=== PATIENT | female | born 1950 | race Caucasian/White ===

== ENCOUNTER 2020-10-22 06:14 | Outpatient (REF) | payer MEDICARE, SELFPAY ==
[2020-10-22 07:21] LABS: Alanine Aminotransferase 19 U/L (0-31); Albumin Level 4.7 g/dL (3.5-5.0); Alkaline Phosphatase 78 U/L (39-117); Anion Gap 12 (12-20); Aspartate Amino Transferase 26 U/L (5-31); Bilirubin Total 0.6 mg/dL (0.0-1.0); Blood Urea Nitrogen 12 mg/dL (9-16); Calcium 9.7 mg/dL (8.4-10.2); Carbon Dioxide 27 mmol/L (22-29); Chloride 105 mmol/L (96-108); Cholesterol 217 mg/dL; Estimated Glomerular Filt Rate 56; Glucose Fasting 102 mg/dL (60-99); HDL Cholesterol 77 mg/dL; LDL Cholesterol Calculated 124 mg/dl; Sodium 140 mmol/L (135-145); Total Protein 7.4 g/dL (6.5-8.0); Triglycerides 81 mg/dL
== END 2020-10-22 06:15 | disposition home or self-care (01) ==
LOC: HO.LAB 06:14
PROVIDERS: PCP Internal Medicine; Visit Provider Internal Medicine
DX: I10 Essential (primary) hypertension (principal); E78.5 Hyperlipidemia, unspecified
CPT/HCPCS: 36415; 80053; 80061

== ENCOUNTER 2020-11-27 09:06 | Outpatient (REF) | payer MEDICARE, SELFPAY ==
--- NOTE | ~2020-11-27 | MM_ITS ---
EXAMINATION: MM SCREENING DIGITAL BREAST TOMOSYNTHESIS, BILATERAL CLINICAL INFORMATION: Screening. Asymptomatic. The lifetime risk of breast cancer based on the Tyrer-Cuzick Model is 1.9%. COMPARISON: Mammography: October 10, 2019 and studies dating back to March 14, 2012 TECHNIQUE: Digital breast tomosynthesis is performed in both the craniocaudal and mediolateral oblique views along with computer-aided detection (CAD). Synthesized 2D images are generated from the tomosynthesis. FINDINGS: The breasts are extremely dense, which lowers the sensitivity of mammography (ACR BI-RADS breast composition Category d). There are no significant masses, abnormal calcifications, or other abnormalities. There is stable nodular dense parenchyma as well as a region of architectural distortion which is stable about the deep superior aspect of the left breast. MM/MM tomosynthesis screening BI IMPRESSION: There are no significant changes from prior study. ASSESSMENT: BI-RADS 1: Negative RECOMMENDATION: Routine annual mammography screening. This patient's information was entered into a reminder system with a target due date for their next mammogram.
== END 2020-11-27 09:07 | disposition home or self-care (01) ==
LOC: HO.MAMMO 09:06
PROVIDERS: Visit Provider Internal Medicine
DX: Z12.31 Encounter for screening mammogram for malignant neoplasm of breast (principal)
CPT/HCPCS: 77063; 77067

== ENCOUNTER 2020-12-09 08:11 | Outpatient (REF) | payer MEDICARE, SELFPAY ==
--- NOTE | ~2020-12-09 | MM_ITS ---
EXAMINATION: BONE DENSITOMETRY CLINICAL INDICATION: Essential, primary, hypertension. Screening for osteoporosis. COMPARISON: Baseline BD dated 07/12/2018. TECHNIQUE: Using a [employer] DXA System (software version: 13.1) manufactured by [employer], dual-energy x-ray absorptiometry was performed of the lumbar spine and left hip. The images are of good technical quality. Summary results are attached. FINDINGS: AP SPINE L1-L4: Current: BMD 1.243 g/cm2, Z-score 2.4, T-score 0.5, normal, 1.9% increase from baseline (<5% change is not significant). Baseline: BMD 1.220 g/cm2. LEFT FEMUR, NECK: Current: BMD 0.923 g/cm2, Z-score 1.0, T-score -0.8, normal. Baseline: BMD 0.954 g/cm2. LEFT FEMUR, TOTAL: Current: BMD 0.956 g/cm2, Z-score 1.2, T-score -0.4, normal, 1.4% decrease from baseline (<5% change is not significant). Baseline: BMD 0.970 g/cm2. IDENTIFIED RISK FACTORS: Early menopause, secondary osteoporosis, hysterectomy, bilateral oophorectomy. HISTORY OF FRACTURE: None listed. MEDICATIONS: Vitamin D. MM/XR DEXA axial skeleton IMPRESSION: 1. DIAGNOSIS: Normal bone density based on the lowest T-score value of -0.8 in the femoral neck applying World Health Organization criteria. 2. 10-YEAR FRACTURE RISK PREDICTION, FRAX: Major osteoporotic fracture (clinical spine, forearm, hip or shoulder) 4.6%. Hip fracture 0.5%. 3. Treatment Recommendations: NOF guidelines recommend consideration for treatment in postmenopausal women and men age 50 and older presenting with the following: -A hip or vertebral (clinical or morphometric) fracture. -T-score less than or equal to -2.5 at the femoral neck or spine after appropriate evaluation to exclude secondary causes. -Low bone mass at the hip or spine and a 10-year fracture probability by FRAX of greater than or equal to 3% for hip fracture or greater than or equal to 20% for major osteoporotic fracture based on the [place] adapted WHO algorithm. 4. Other Recommendations: All treatment decisions require clinical judgment and consideration of individual patient factors, including patient preferences, comorbidities, previous drug use, risk factors not captured in the FRAX model (e.g. frailty, falls, vitamin D deficiency, increased bone turnover, interval significant decline in bone density) and possible under or overestimation of fracture risk by FRAX. FUTURE SCAN RECOMMENDATION: People with diagnosed cases of osteoporosis or at high risk for fracture should have regular bone mineral density tests. For patients eligible for Medicare, routine testing is allowed once every 2 years. The testing frequency can be increased to one year for patients who have rapidly progressing disease, those who are receiving or discontinuing medical therapy to restore bone mass, or have additional risk factors.
== END 2020-12-09 08:12 | disposition home or self-care (01) ==
LOC: HO.MAMMO 08:11
PROVIDERS: PCP Internal Medicine; Visit Provider Internal Medicine
DX: Z13.820 Encounter for screening for osteoporosis (principal); Z78.0 Asymptomatic menopausal state
CPT/HCPCS: 77080

== ENCOUNTER 2021-03-11 06:05 | Outpatient (REF) | payer MEDICARE, SELFPAY ==
[2021-03-11 07:49] LABS: Alanine Aminotransferase 22 U/L (0-31); Albumin Level 4.5 g/dL (3.5-5.0); Alkaline Phosphatase 64 U/L (39-117); Anion Gap 10 (12-20); Aspartate Amino Transferase 26 U/L (5-31); Bilirubin Total 0.7 mg/dL (0.0-1.0); Blood Urea Nitrogen 16 mg/dL (9-16); Calcium 9.7 mg/dL (8.4-10.2); Carbon Dioxide 28 mmol/L (22-29); Chloride 106 mmol/L (96-108); Cholesterol 205 mg/dL; Estimated Glomerular Filt Rate > 60; Glucose Fasting 99 mg/dL (60-99); HDL Cholesterol 67 mg/dL; LDL Cholesterol Calculated 123 mg/dl; Potassium 4.1 mmol/L (3.3-5.1); Sodium 140 mmol/L (135-145); Triglycerides 78 mg/dL
== END 2021-03-11 06:06 | disposition home or self-care (01) ==
LOC: HO.LAB 06:05
PROVIDERS: PCP Internal Medicine; Visit Provider Internal Medicine
DX: E78.5 Hyperlipidemia, unspecified (principal); I10 Essential (primary) hypertension
CPT/HCPCS: 36415; 80053; 80061

== ENCOUNTER 2021-11-11 10:33 | Emergency (ER) | payer MEDICARE, BC, SELFPAY ==
[2021-11-11 10:45] VITALS: BP 163/88; PULSE 91; RESP 16; TEMP 36.8; O2SAT 98; BMI 22.8
--- NOTE | 2021-11-11 11:32 | ED_ITS ---
HPI - General Adult General Chief complaint: General Medical Stated complaint: Lump on R side of neck Time Seen by Provider: 11/11/21 12:24 Source: patient Mode of arrival: ambulatory Limitations: no limitations History of Present Illness HPI narrative: 71-year-old female presents to ED for Right cervical lymph node tendernes neck that began on monday . Patient states also right sided throat pain and right mild ear discomfort. Patient states lymphnode siginificantly decreased in size and is improving as per patient. Patient states no fever, chills night sweats, weight loss, coughing, chest pain, shortness of breath, mass on any parts of the body, or family history of Cancer or lymphmoa. Patient denies any drooling, chest pain, shortness of breath, facial swelling, dental pain, or any recent dental work Related Data Previous Rx's Medication Instructions Recorded escitalopram oxalate 5 mg tablet 5 mg PO DAILY 90 days #90 tabs 04/12/21 omeprazole 20 mg capsule,delayed 20 mg PO DAILY 90 days #90 caps 05/31/21 release simvastatin 40 mg tablet 40 mg PO BEDTIME #90 tabs 09/22/21 amlodipine 2.5 mg tablet 2.5 mg PO DAILY #90 tabs 11/04/21 Allergies Allergy/AdvReac Type Severity Reaction Status Date / Time ROBSON Inhibitors Allergy Intermediate Cough Verified 11/11/21 10:48 Sulfa (Sulfonamide Allergy Intermediate GETS Verified 11/11/21 10:48 Antibiotics) REALLY SICK [SULFA (SULFONAMIDE ANTIBIOTICS)] lisinopril [LISINOPRIL] AdvReac Intermediate COUGH Verified 11/11/21 10:48 Review of Systems Review of Systems: Right-sided lump Yes all other systems are reviewed and are negative FOR[facility]LY [facility] Past Medical History Medical History (Updated 11/11/21 @ 12:26 by RAZ Bo) Depression Dyslipidemia Essential hypertension GERD (gastroesophageal reflux disease) Mild recurrent major depression Surgical History History of cholecystectomy History of tonsillectomy History of total hysterectomy Family History Family History Mother Dyslipidemia Father Multiple myeloma Social History Social History Housing: House Alcohol intake: current Alcohol intake frequency: a few times a week Alcohol type: beer and wine Patient Tobacco Use Status: Never used Tobacco Tobacco use type: Cigarette e-Cigarette/Vaping Use: Never Used Second Hand Smoke Exposure: No Advance Directives: No Advance Directives Information Provided: Yes service: No Current occupational status: retired Cognitive needs: No Hearing needs: No Vision needs: No Physical Exam ED Vital Signs: Vital Signs - 24 hr 11/11/21 10:45 Temperature 98.3 F Pulse Rate 91 Respiratory Rate 16 Blood Pressure 163/88 H Pulse Oximetry 98 Oxygen Delivery Method Room Air BMI result Body Mass Index 22.8 Const General: cooperative, healthy appearing, comfortable, no acute distress, well developed, alert, awake and Physically active Orientation/consciousness: oriented to time and patient oriented x3 HENMT Other: Negative for drooling. Negative for tongue swelling. Negative for trismus. Negative for facial swelling. Negative for submandibular swelling. Head: Yes normal to inspection, Yes No palpable skull fracture present, Yes normocephalic, Yes atraumatic and No abrasion Ears: hearing grossly normal bilaterally, external ears normal, TM's normal bilaterally, TM normal on the right, TM normal on the left, EAC's normal, mastoids normal and no periauricular adenopathy Throat: Yes posterior oropharynx normal, Yes tonsils normal and Yes uvula midline Eyes General: appearance normal, both eyes and all related structures Neck Neck: Yes normal visual inspection, Yes full ROM, Yes no lymphadenopathy, Yes no meningeal signs, Yes trachea midline, Yes supple, No anterior neck swelling and Yes lymphadenopathy (right tender small cervical lymphnode) Neck images: 1. Small tender lymph node on palpation. Lymph node is not movable. Negative for erythema. Patient speaking clearly and in full sentences. Negative for any supraclavicular mass Chest Other: Negative for any chest wall mass or lymphadenopathy Chest palpation & inspection: normal inspection of the chest and normal palpation of entire chest wall Resp Effort & Inspection: normal respiratory effort and able to speak in complete sentences Auscultation: clear to auscultation bilaterally Cardio Jugular venous distension: no JVD Heart sounds: S1 normal heart sound present and S2 normal heart sound present GI Other: Negative for any lymph nodes. Inspection: Yes normal to inspection and No abdominal wall ecchymosis Palpation (GI): Soft to palpation, not firm, nontender, no guarding and not rigi d General: No CVA tenderness and Yes no CVA tenderness Back/Spine/Pelvis Back: no CVA tenderness, No CVA tenderness and No back tenderness Skin General skin exam: no rashes or lesions noted and elasticity normal Neuro General: oriented to time, patient oriented x3 and no meningeal signs Cranial nerves: Yes CN's II-XII intact bilaterally Extrem General: Yes normal to inspection and Yes full ROM Psych Appearance: grossly normal, well kempt and not disheveled Course Course Course Narrative: COVID and strep ordered. Patient well-appearing. Reevaluation(s) Reevaluation #1: COVID strep came back negative. Patient is safe for discharge. Diagnosis Lymphadenopathy Patient educated on Hodgkin's and non-Hodgkin's lymphoma. Patient educated on the symptoms and signs informed to follow-up primary care provider immediately. Patient informed to follow with primary care provider. Presently not suspecting any retropharyngeal abscess, Hodgkins or nonhodgkins lymphoma, dental abscess, Brent Angina or peritonsillar abscess. Time: 12:24 Medical Decision Making MDM Narrative Medical decision making narrative: Lymphadenopathy Lab Data Labs: Lab Results 11/11/21 11/11/21 Range/Units 11:48 11:48 COVID-19 (LORA) Negative (Negative) COVID-19 Clin Com See Note S. pyogenes GrpA JONES Negative (Negative) Discharge Plan Discharge Clinical Impression: Lymphadenopathy Patient Disposition: Home, Self-Care Instructions: Lymphadenopathy (ED) Additional Instructions: If strep and COVID test came back negative. Ear exam does not indicate infection. Please follow-up with your primary care provider. Return to the ED immediately for increased size of lymph node, fever, night sweats, weight loss, hard mass/lymph nodes in other parts of the body, weakness, dizziness, chest pain, shortness of breath, or any other concerning symptoms. Over the Motrin and tylelnol can be taken Prescriptions: No Action escitalopram oxalate 5 mg tablet 5 mg PO DAILY 90 Days Qty: 90 3RF omeprazole 20 mg capsule,delayed release(DR/EC) 20 mg PO DAILY 90 Days Qty: 90 2RF simvastatin 40 mg tablet 40 mg PO BEDTIME Qty: 90 1RF amlodipine 2.5 mg tablet 2.5 mg PO DAILY Qty: 90 1RF Interventions: ED Discharge Assessment Last Done: 11/11/21 13:09 Discharge Date/Time: 11/11/21 13:10 Print Language: [place]
[2021-11-11 12:19] LABS: COVID-19 Test Negative (Negative); IDNOW Serial# 16C4AD1C
[2021-11-11 12:22] LABS: IDNOW Serial# 08D9AD1C; Strep A Nucleic Acid Negative (Negative)
== END 2021-11-11 13:10 | disposition home or self-care (01) ==
PROVIDERS: Physician Assistant; Emergency Provider Student in an Organized Health Care Education/Training Program; PCP Internal Medicine
DX: R59.1 Generalized enlarged lymph nodes (principal); Z20.822 Contact with and (suspected) exposure to COVID-19; I10 Essential (primary) hypertension; E78.5 Hyperlipidemia, unspecified; Z79.899 Other long term (current) drug therapy; Z79.02 Long term (current) use of antithrombotics/antiplatelets
CPT/HCPCS: 87635; 87651; 99283

== ENCOUNTER 2021-12-10 08:13 | Outpatient (REF) | payer MEDICARE, BC, SELFPAY ==
--- NOTE | ~2021-12-10 | MM_ITS ---
EXAMINATION: MM SCREENING DIGITAL BREAST TOMOSYNTHESIS, BILATERAL CLINICAL INFORMATION: Screening. Asymptomatic. The lifetime risk of breast cancer based on the Tyrer-Cuzick Model is 2%. COMPARISON: Mammography: 11/27/2020, 10/10/2019, 07/12/2018 TECHNIQUE: Digital breast tomosynthesis is performed in both the craniocaudal and mediolateral oblique views along with computer-aided detection (CAD). Synthesized 2D images are generated from the tomosynthesis. FINDINGS: The breasts are heterogeneously dense, which may obscure small masses (ACR BI-RADS breast composition Category c). Parenchymal pattern is similar to prior studies. There is no mass or architectural abnormality or abnormal calcifications. No developing density. The axilla and skin contours are unremarkable. MM/MM tomosynthesis screening BI IMPRESSION: No mammographic evidence of malignancy. ASSESSMENT: BI-RADS 1: Negative RECOMMENDATION: Routine annual mammography screening. This patient's information was entered into a reminder system with a target due date for their next mammogram.
== END 2021-12-10 08:14 | disposition home or self-care (01) ==
LOC: HO.MAMMO 08:13
PROVIDERS: PCP Internal Medicine; Visit Provider Internal Medicine
DX: Z12.31 Encounter for screening mammogram for malignant neoplasm of breast (principal)
CPT/HCPCS: 77063; 77067

== ENCOUNTER 2022-03-17 06:06 | Outpatient (REF) | payer MEDICARE, BC, SELFPAY ==
[2022-03-17 08:16] LABS: Alanine Aminotransferase 13 U/L (0-31); Albumin Level 4.7 g/dL (3.5-5.0); Alkaline Phosphatase 64 U/L (39-117); Anion Gap 16 (12-20); Aspartate Amino Transferase 25 U/L (5-31); Bilirubin Total 0.6 mg/dL (0.0-1.0); Blood Urea Nitrogen 15 mg/dL (9-16); Calcium 9.7 mg/dL (8.4-10.2); Carbon Dioxide 25 mmol/L (22-29); Chloride 105 mmol/L (96-108); Cholesterol 234 mg/dL; Estimated Glomerular Filt Rate > 60; Glucose Fasting 106 mg/dL (60-99); HDL Cholesterol 75 mg/dL; LDL Cholesterol Calculated 144 mg/dl; Potassium 4.6 mmol/L (3.3-5.1); Sodium 141 mmol/L (135-145); Total Protein 7.3 g/dL (6.5-8.0); Triglycerides 75 mg/dL
== END 2022-03-17 06:07 | disposition home or self-care (01) ==
LOC: HO.LAB 06:06
PROVIDERS: PCP Internal Medicine; Visit Provider Internal Medicine
DX: E78.5 Hyperlipidemia, unspecified (principal)
CPT/HCPCS: 36415; 80053; 80061

== ENCOUNTER 2022-12-16 07:47 | Outpatient (REF) | payer MEDICARE, BC, SELFPAY | END 2022-12-16 07:48 | disposition home or self-care (01) | LOC: HO.MAMMO 07:47 | PROVIDERS: Visit Provider Internal Medicine | DX: Z12.31 Encounter for screening mammogram for malignant neoplasm of breast (principal) | CPT/HCPCS: 77063; 77067 ==

== ENCOUNTER → 2022-12-16 08:15 | Outpatient (BNV) | payer MEDICARE, BC, SELFPAY | PROVIDERS: Visit Provider Radiology Diagnostic Radiology | DX: Z12.31 Encounter for screening mammogram for malignant neoplasm of breast (principal) | CPT/HCPCS: 77063; 77067 ==

== ENCOUNTER 2023-03-16 06:08 | Outpatient (REF) | payer MEDICARE, SELFPAY ==
[2023-03-16 08:19] LABS: Alanine Aminotransferase 12 U/L (0-31); Albumin Level 4.2 g/dL (3.5-5.0); Alkaline Phosphatase 52 U/L (39-117); Anion Gap 13 (12-20); Aspartate Amino Transferase 23 U/L (5-31); Bilirubin Total 0.6 mg/dL (0.0-1.0); Blood Urea Nitrogen 14 mg/dL (9-16); Calcium 9.2 mg/dL (8.4-10.2); Carbon Dioxide 27 mmol/L (22-29); Chloride 105 mmol/L (96-108); Cholesterol 198 mg/dL (<200); Estimated Glomerular Filt Rate > 60; Glucose Fasting 96 mg/dL (60-99); HDL Cholesterol 72 mg/dL (>40); LDL Cholesterol Calculated 115 mg/dL (<100); Potassium 3.6 mmol/L (3.3-5.1); Sodium 141 mmol/L (135-145); Total Protein 6.7 g/dL (6.5-8.0); Triglycerides 58 mg/dL (<150)
== END 2023-03-16 06:09 | disposition home or self-care (01) ==
LOC: HO.LAB 06:08
PROVIDERS: PCP Internal Medicine; Visit Provider Internal Medicine
DX: E78.5 Hyperlipidemia, unspecified (principal)
CPT/HCPCS: 36415; 80053; 80061

== ENCOUNTER 2023-12-22 07:43 | Outpatient (REF) | payer MEDICARE, BC, SELFPAY ==
--- NOTE | ~2023-12-22 | MM_ITS ---
EXAMINATION: MM SCREENING DIGITAL BREAST TOMOSYNTHESIS, BILATERAL CLINICAL INFORMATION: Screening. Asymptomatic. COMPARISON: Mammography: Comparison is made with available priors TECHNIQUE: Digital breast mammography with tomosynthesis is performed in both the craniocaudal and mediolateral oblique views along with computer-aided detection (CAD). FINDINGS: The breasts are heterogeneously dense, which may obscure small masses (ACR BI-RADS breast composition Category c). There are no significant masses, abnormal calcifications, or other abnormalities. MM/MM tomosynthesis screening BI IMPRESSION: No mammographic evidence of malignancy. ASSESSMENT: BI-RADS BI-RADS 1 - Negative RECOMMENDATION: Routine annual mammography screening. 1 year F/U This examination should not preclude the clinical evaluation of a suspicious palpable abnormality. This patient's information was entered into a reminder system with a target due date for their next mammogram. Electronically signed by: Ruth Horta DO 01/02/2024 12:35 PM EDT
== END 2023-12-22 07:44 | disposition home or self-care (01) ==
LOC: HO.MAMMO 07:43
PROVIDERS: PCP Internal Medicine; Visit Provider Internal Medicine
DX: Z12.31 Encounter for screening mammogram for malignant neoplasm of breast (principal)
CPT/HCPCS: 77063; 77067

== ENCOUNTER → 2023-12-22 08:00 | Outpatient (BNV) | payer MEDICARE, BC, SELFPAY | PROVIDERS: PCP Internal Medicine; Visit Provider Internal Medicine | DX: Z12.31 Encounter for screening mammogram for malignant neoplasm of breast (principal) | CPT/HCPCS: 77063; 77067 ==

== ENCOUNTER 2024-04-03 12:21 | Outpatient (AMB) | payer MEDICARE, BC, SELFPAY ==
[2024-04-03 12:30] VITALS: BP 136/70; PULSE 74; O2SAT 98; BMI 19.5
--- NOTE | 2024-04-03 12:30 | A.OFFVIS_ITS ---
Intake Vital Signs 04/03/24 12:30 Height 5 ft 3.5 in Weight 112 lb BMI 19.5 BP 136/70 Blood Pressure Location Lt brachial Position Sitting Pulse 74 Pulse Source Pulse Oximeter Pulse Oximetry (%) 98 Oxygen Delivery Method Room Air Intake Visit Reasons: AWV/ NAI Dr Lange Allergies ROBSON Inhibitors Allergy (Intermediate, Verified 04/03/24 12:31) Cough Sulfa (Sulfonamide Antibiotics) [SULFA (SULFONAMIDE ANTIBIOTICS)] Allergy (Intermediate, Verified 04/03/24 12:31) GETS REALLY SICK lisinopril [LISINOPRIL] Adverse Reaction (Intermediate, Verified 04/03/24 12:31) COUGH Medication List - Last Reconciled 04/03/24 by Jack Garcia MD amlodipine 2.5 mg PO DAILY escitalopram oxalate 5 mg PO DAILY 90 days omeprazole 20 mg PO DAILY 90 days simvastatin 40 mg PO BEDTIME HPI AWV/ NAI Dr Lange HPI Details The patient is a 73-year-old female presenting for an annual wellness visit. She has a history of hypertension, currently managed with 2.5 mg of amlodipine once daily. She also takes simvastatin for hyperlipidemia but was informed during the visit about a potential interaction between amlodipine and simvastatin, and a decision was made to switch her cholesterol management to atorvastatin. The patient reported gastrointestinal issues previously addressed with omeprazole, which she switched to upon consultation, improving her symptoms of heartburn. Her last bone density scan in 2020 was normal, and she expressed interest in a repeat test. The patient has a past medical history significant for colon polyps found in a 2018 colonoscopy, with a follow-up scheduled for June. Additionally, she voiced memory concerns, such as forgetting items like keys but attributes it to aging. No serious cognitive events were reported. Family history is notable for Alzheimer's disease in her biological mother. - Flu vaccination up to date - Tetanus shot up to date - Shingles shot completed - Pneumonia shot received in 2022 - Colonoscopy scheduled for follow-up on June 12 - Last mammogram was in December 2023 - Bone density scan recommended, previou sly normal in 2020 - Blood work requested with fasting for 8 hours prior to test - Advised to increase water intake, kemal cially during the day while limiting before sleep - Encouraged regular physical activity i ncluding walking and mowing lawn - Suggested healthy eating habits and we ight management - Lives with her brother - Drinks alcohol occasionally, primarily on weekends - Smokes marijuana recreationally with jared kelley on weekends - Previously attempted smoking cigarette s, not continued - Engages in physical activities such as walking and lawn mowing - Limited water intake but intends to in crease it - Cardiovascular: Denies chest pain, rep orts good blood pressure control - Gastrointestinal: Denies nausea, vomit ing, or difficulty swallowing; reports previous constipation now resolved with dietary changes - Neurologic: Reports minor memory lapse s, denies dizziness - Respiratory: Denies shortness of breat h - Hearing: No complaints - Labs: Blood work ordered - Procedures: Urinalysis to be conducted - Imaging: Bone density scan scheduled [facility] Medical History (Updated 04/03/24 @ 12:47 by Jack Garcia MD) Mild recurrent major depression Depression Dyslipidemia GERD (gastroesophageal reflux disease) Essential hypertension Surgical History (Updated 04/03/24 @ 12:53 by Jack Garcia MD) S/P BLU-BSO History of colonoscopy History of total hysterectomy History of cholecystectomy History of tonsillectomy Family History Mother Dyslipidemia Father Multiple myeloma Social History (Updated 04/03/24 @ 12:54 by Jack Garcia MD) Housing: House Alcohol intake: current Alcohol intake frequency: a few times a week Alcohol type: beer and wine Comment: 2 days weekend 2 drinks Patient Tobacco Use Status: Never used Tobacco Years Smoked: marijuana e-Cigarette/Vaping Use: Never Used Second Hand Smoke Exposure: No service: No Current occupational status: retired Cognitive needs: No Hearing needs: No Vision needs: No Questionnaire Medicare Wellness Checkup [age] What gender do you identify with?: female During the past 4 weeks, how much have you been bothered by emotional problems such as feeling anxious, depressed, irritable, sad or downhearted, and blue?: slightly During the past 4 weeks, has your physical & emotional health limited your social activities with family, friends, neighbors, or groups?: not at all During the past 4 weeks, how much bodily pain have you generally had?: no pain During the past 4 weeks, was someone available to help you if you needed & wanted help?: yes, as much as I wanted During the past 4 weeks, what was the hardest physical activity you could do for at least 2 minutes?: heavy Can you get to places out of walking distance without help? (For eg., can you travel alone on buses, taxis or drive your car?): Yes Can you go shopping for groceries or clothes without someone's help?: Yes Can you prepare your own meals?: Yes Can you do your housework without help?: Yes Because of any health problems, do you need the help of another person with your personal care needs such as eating, bathing, dressing or getting around the house?: No Can you handle your own money without help?: Yes During the past 4 weeks, how would you rate your health in general?: very good During the past 4 weeks how have things been going for you?: pretty well Are you having difficulties driving your car?: no Do you always fasten your seat belt when you are in a car?: yes, usually During past 4 weeks, have you been bothered by the following: never: Falling or dizzy when standing up, Sexual problems?, Trouble eating well?, Teeth or denture problems? and Problems using the telephone? and sometimes: Tiredness or fatigue? Have you fallen 2 or more times in the past year?: No Are you afraid of falling?: Yes Are you a smoker?: no During the past 4 weeks, how many drinks of wine, beer, or other alcoholic beverages did you have?: 2-5 drinks per week Do you exercise for about 20 minutes 3 or more times a week?: yes, some of the time Have you been given information to help with the following?: yes: Keeping track of your medications? and no: Hazards in your house that might hurt you? How often do you have trouble taking medicines the way you have been told to take them?: I always take medicine as prescribed How confident are you that you can control & manage most of your health problems?: very confident What is your race?: or origin or descent (White) PHQ-9 Over the last 2 weeks, how often have you been bothered by any of the following problems? 1. Little interest or pleasure in doing things: not at all 2. Feeling down, depressed, or hopeless: not at all 3. Trouble falling or staying asleep, or sleeping too much: not at all 4. Feeling tired or having little energy: not at all 5. Poor appetite or overeating: not at all 6. Feeling bad about yourself - or that you are a failure or have let yourself or your family down: not at all 7. Trouble concentrating on things, such as reading the newspaper or watching television: not at all 8. Moving or speaking so slowly that other people could have noticed. Or the opposite - being so fidgety or restless that you have been moving around a lot more than usual: not at all 9. Thoughts that you would be better off or of hurting yourself in some way: not at all Total score: 0 Depression Screening Interpretation: Negative Depression Screening Done: Yes 90166 - PHQ-9 Billing: Yes Source: Developed by Drs. Jaiden Albert, Brittany Meek, Gilbert Cote and colleagues, with an educational wolfgang from [employer]. Thrive Questionnaire Date Thrive assessed: 04/03/24 I am a: Patient What is your living situation today?: I have a steady place to live Within the past 12 months, did the food you bought not last and you didn't have the money to get more?: Never true Within the past 12 months, did you worry whether your food would run out before you got money to buy more?: Never true Do you have trouble paying for medicines?: No Do you have trouble getting transportation to medical appointments?: No Do you have trouble paying your heating and electricity bill?: No Do you have trouble taking care of your child, family member or friend?: No Do you have trouble with day-to-day activities such as bathing, preparing meals, shopping, managing finances, etc.?: No Are you currently unemployed and looking for a job?: No Are you interested in more education?: No Currently or been in a relationship where the following occur: No concerns reported THRIVE Score: 0 ALBER-7 AMB Questionnaire ALBER-7 Date ALBER - 7 assessed: 04/03/24 Feeling nervous, anxious, or on edge: 0 = Not at all Not being able to stop or control worryin = Not at all Worrying too much about different things: 0 = Not at all Trouble relaxin = Not at all Being so restless that it is hard to sit still: 0 = Not at all Becoming easily annoyed or irritable: 0 = Not at all Feeling afraid as if something awful might happen: 0 = Not at all Total ALBER-7 score (0-4 normal; 5-9 mild; 10-14 moderate; 15-21 severe): 0 Source: Developed by Drs. Jaiden Albert, Brittany Meek, Gilbert Cote and colleagues, with an educational wolfgang from [employer]. Review of Systems Const Denies poor appetite and Denies weakness Eyes Denies no additional complaints ENT Reports Normal hearing present, Denies dizziness, Denies nasal congestion, Denies tinnitus and Denies sore throat Card Denies chest pain, Denies syncope, Denies rapid heart rate and Denies dyspnea Resp Denies cough and Denies dyspnea GI Denies change in stool character, Reports constipation, Denies diarrhea, Denies nausea and Denies vomiting Denies urinary frequency, Denies difficulty voiding and Denies dysuria Neuro Reports Normal hearing present, Denies confusion, Denies dizziness, Denies syncope and Denies weakness Psych Denies confusion Physical Exam Vital Signs: Last Vital Signs Pulse 74 04/03/24 12:30 BP 136/70 04/03/24 12:30 Pulse Ox 98 04/03/24 12:30 Oxygen Delivery Method Room Air 04/03/24 12:30 BMI result Body Mass Index 19.5 Const General: alert and awake; No confusion Orientation/consciousness: No confusion HEENT Head: Yes normocephalic Ears: external ears normal and TM's normal bilaterally Face and sinus: Yes normal facial exam Mouth: moist mucous membranes Throat: Yes tonsils normal Eyes Conjunctivae: conjunctivae normal Pupils: Equal, round and reactive pupils present and Pupil accommodation reflex normal Direct Ophthalmoscopy: normal light reflex Neck Neck: No lymphadenopathy Thyroid: Thyroid normal Chest Chest palpation & inspection: normal inspection of the chest Resp Effort & Inspection: normal respiratory effort and no audible wheezes Auscultation: clear to auscultation bilaterally, no crackles, no wheezes and lung sounds not diminished Cardio Rate: regular rate Rhythm: regular rhythm Peripheral pulses: radial pulses present and dorsalis pedis present GI Palpation (GI): no masses Auscultation: normal bowel sounds and normoactive bowel sounds Rectal Exam - Female: deferred Skin General skin exam: no rashes or lesions noted Rashes: no rashes Neuro General: deep tendon reflexes 2+ bilaterally and No confusion Cranial nerves: Yes Equal, round and reactive pupils present, Yes Midline tongue present, Yes Normal hearing present and Yes Ability to bilaterally elevate shoulders present Cognition (Neuro): normal cognition Gait exam (Neuro): Normal gait present Motor exam (neuro): 5/5 motor strength present throughout Deep tendon reflexes (DTR's): Right brachioradialis reflex intensity grade: 2+, Left brachioradialis reflex intensity grade: 2+, Right patellar reflex intensity grade: 2+ and Left patellar reflex intensity grade: 2+ Extrem General: No edema Assessment & Plan Assessment & Plan (1) Annual physical exam: Code(s): Z00.00 - Encounter for general adult medical examination without abnormal findings (2) Essential hypertension: Code(s): I10 - Essential (primary) hypertension (3) GERD (gastroesophageal reflux disease): Code(s): K21.9 - Gastro-esophageal reflux disease without esophagitis (4) Dyslipidemia: Code(s): E78.5 - Hyperlipidemia, unspecified (5) Mild recurrent major depression: Code(s): F33.0 - Major depressive disorder, recurrent, mild (6) Screening for osteoporosis: Code(s): Z13.820 - Encounter for screening for osteoporosis Plan - Prescribe atorvastatin, replacing simvastatin for hyperlipidemia management - Continue amlodipine for hypertension - Schedule colonoscopy as planned for follow-up of polyps - Arrange for bone density scan to evaluate osteoporosis risk - Encourage continuation of omeprazole for GERD management - Advise cognitive monitoring due to family history of Alzheimer's - Recommend increased water intake, particularly during daylight hours - Suggest scheduling blood work with prior fasting I discussed the potential interactions between amlodipine and simvastatin, recommending a switch to atorvastatin at a lower dose. I revisited the patient's management for GERD with omeprazole, verifying it alleviated her heartburn symptoms effectively. We reviewed her colonoscopy follow-up scheduled for June and highlighted the significance of ongoing screening due to a history of polyps. I advised on the need for another bone density scan, as osteoporosis risk assessment is crucial, even after the previous normal result in 2020. I encouraged adherence to lifestyle modifications, emphasizing hydration, diet, and physical exercise, and addressed the importance of regular check-ups for cognitive concerns given her family history. Consent for blood work and explanation of the fasting requirements were addressed. - Continue medications as prescribed, including switching to atorvastatin - Schedule and undergo a colonoscopy as planned in June - Increase daily water intake, particularly in the morning and afternoon - Avoid consuming liquids before bed to minimize nighttime bathroom trips - Maintain a balanced diet with regular physical activity - Undergo routine blood tests after fasting for 8 hours - Note any significant changes in memory or cognitive function and report back - Keep all immunizations up to date and follow recommended health screenings Orders: Orders Comprehensive Met. Panel Today E78.5 - Hyperlipidemia, unspecified Free T4 (Free Thyroxine) Today E78.5 - Hyperlipidemia, unspecified Vitamin D 25-OH Total Today E78.5 - Hyperlipidemia, unspecified XR DEXA axial skeleton Today M81.0 - Age-related osteoporosis without current pathological fracture, Z13.820 - Encounter for screening for osteoporosis UA CC w/rflx Micro + Cult Today I10 - Essential (primary) hypertension, R30.0 - Dysuria Complete Blood Count Auto Diff Today E78.5 - Hyperlipidemia, unspecified Thyroid Stimulating Hormone Today E78.5 - Hyperlipidemia, unspecified Lipid Panel Today E78.00 - Pure hypercholesterolemia, unspecified, E78.5 - Hyperlipidemia, unspecified Vitamin B12 and Folate Today E78.5 - Hyperlipidemia, unspecified Medications: New atorvastatin 10 mg PO DAILY 90 tabs 1RF E78.5 - Hyperlipidemia, unspecified Discontinued simvastatin Discontinued Reason: Doctor's Order 40 mg PO BEDTIME 90 tabs 3RF Quality Reporting (2019) Depression/Bipolar (159/160/161/177) PHQ-9: Total score: 0 Coding Level of Care Code Medicare Subsequent (G0439) Diagnoses Annual physical exam Z00.00 Essential hypertension I10 GERD (gastroesophageal reflux disease) K21.9 Dyslipidemia E78.5 Mild recurrent major depression F33.0 Screening for osteoporosis Z13.820 Additional Codes PHQ-9 - 20229 - PHQ-9 Billing: Yes ([id number])
== END 2024-04-03 13:10 | disposition home or self-care (01) ==
PROVIDERS: PCP Internal Medicine; Visit Provider Internal Medicine
DX: Z00.00 Encounter for general adult medical examination without abnormal findings (principal); F33.0 Major depressive disorder, recurrent, mild; I10 Essential (primary) hypertension; K21.9 Gastro-esophageal reflux disease without esophagitis; E78.5 Hyperlipidemia, unspecified; Z13.820 Encounter for screening for osteoporosis

== ENCOUNTER → 2024-04-03 12:21 | Outpatient (BNVA) | payer MEDICARE, BC, SELFPAY | PROVIDERS: PCP Internal Medicine; Visit Provider Internal Medicine | DX: Z00.00 Encounter for general adult medical examination without abnormal findings (principal); I10 Essential (primary) hypertension; K21.9 Gastro-esophageal reflux disease without esophagitis; E78.5 Hyperlipidemia, unspecified; F33.0 Major depressive disorder, recurrent, mild | CPT/HCPCS: 96127 ==

== ENCOUNTER 2024-04-04 06:07 | Outpatient (REF) | payer MEDICARE, BC, SELFPAY ==
--- OUTSIDE RECORDS SUMMARY | 2024-04-04 06:10 | XMS_ITS | Data Portability ---
Author Organization [facility], Home Service Address [address] [place] [address] Assessment No assessment recorded. Plan of Treatment Reminders Order Date Submit Date Provider Last Modified By Organization Details Last Modified Time Details Appointments None record ed. Lab None record ed. Referral None record ed. Procedures None record ed. Surgeries None record ed. Imaging None record ed. Medication Orders None record ed. Patient TargetsNo targets recorded. Patient InstructionsNo instructions recorded. Reason for Referral None Reported. Results Created Date Observation Date Name Description Value Unit Range Abnormal Flag Note LastModifiedBy Organization Detail LastModifiedTime 07/12/19 18 07/05/2017 MAMMO , scree sita, bilat eral No observ ation record ed. BARCODE Not Available 2017 08:37:44 Result Notes None recorded. Problems Name Problem SNOMED Code Status Onset Date Resolution Date Notes Provider Name and Address Organization Details Recorded Time Essential hypertensi on 95553283 Active 2017 Lola Lind NP, [address] [place], [address], [facility] 8 10:41:18 Irritable bowel syndrome 52933409 Active 2017 Yamilet barry [facility] 8 08:36:37 Acid reflux 126256077 Active 2017 Yamilet barry [facility] 8 08:36:57 Hyperchole sterolemia 62558948 Active 2017 Yamilet barry [facility] 8 08:37:10 Problem Notes None recorded. Procedures Surgical History None recorded. Imaging Results Imaging Date Name Status LastModified by Organiz ation Details LastModified Time 07/05/2017 MAMMO, screening, bilateral completed BARCODE Information not available 07/11/2017 08:37:44 Procedure Notes None recorded. Medical Equipment None Reported. Allergies Allergen ID Allergen Name Allergen Category Reaction Reaction Severity Criticality Documentation Date Start Date Code Code System Note Provider Name and Address Organization Details Recorded Time 1006 Substance with sulfonami de structure and antibacte rial mechanism of action (substanc e) medicatio n Not available Not available Not available 07/04/2017 31208 8003 SNOMED Yamilet barry [facility] 8 08:36:26 Medications Name Sig Start Date Stop Date Status Note LastModified by Organization Details LastModified Time phenazopyri dine 200 mg tablet Take 1 tablet 3 times a day by oral route. active Not Available Not Available No t Available simvastatin 40 mg tablet 1 po daily active Not Available Not Available No t Available benzonatate 100 mg capsule active Not Available Not Available Not Available cephalexin 500 mg capsule 07/04 completed Not Available Not Available Not Available lansoprazol e 30 mg capsule,del ayed release 1 po q am 1/2 hour before breakfast active Not Available Not Available No t Available codeine 10 mg-guaifene sin 100 mg/5 mL oral liquid active Not Available Not Available Not Available olmesartan 5 mg tablet TAKE 2 TABLETS BY MOUTH EVERY DAY active Not Available Not Available No t Available valsartan 40 mg tablet Take 1 tablet every day by oral route. active Not Available Not Available No t Available escitalopra m 5 mg tablet TAKE 1 TABLET BY MOUTH EVERY DAY active Not Available Not Available No t Available Vitals Date Recorded Body height Body mass index (BMI) Body weight Heart rate Oxygen saturation Oxygen saturation in Arterial blood by Pulse oximetry Systolic blood pressure Diastolic blood pressure Provider Name and Address Organization Details Last Updated DateTime 8 161.29 cm 23.5 kg/m2 39133.8 9 g 69 /min 99 % 99 % 124 mm[Hg] 72 mm[Hg] Yamilet Shea [facility] 8 11:18:34 Social History Question Answer Notes LastModified by Organizat ion Details LastModified Time Tobacco Smoking Status Never Smoker Not Available [facility] 03:36:23 What Was The Date Of Your Most Recent Tobacco Screening? 07/04/2017 [id number] Information not available 01/14/2020 Sex: Unknown Functional Status None recorded. Mental Status None recorded. Family History Nothing Reported. Medical History No medical history recorded. Gynecological HistoryNo gynecological history recorded. Obstetrics History GPAL:G 0 P 0 0 0 0 Immunizations Vaccine Type Date Status Note Provider Nam e and Address Organization Details Recorded Time Tdap 10/12/2017 completed Lola Lind NP, S [address] [place] [address], [phone], [facility] 10/20/2017 08:49:35 Past Encounters Encounter ID Performer Location Encounter Start Date Encounter Closed Date Diagnosis/Indication Diagnosis SNOMED-CT Code Diagnosis ICD10 Code Diagnosis Note [id number] Lola Lind NP, S [facility] [address] [place] [address],[place] [address] 07/04/2017 11:10:01 07/04/2017 14:16:58 Essential hypertension 64498155 I10 improved with valsartan, reviewed labs Health Concerns Section Related Observation LastModified by Organization Detai ls LastModified Time None Recorded Concern Status LastModified by Organization Details LastModified Time None Recorded Advance Directives Directive None Recorded Payers Encounter Date Sequence Insurance Name Policy Number Policy Deleon Covered Member ID Deleon Member ID Guarantor Name 07/04/2017 1 [place] [employer] Angelique Lira [id number] Angelique iLra 07/04/2017 2 [place] [id number] Angelique Lira [id number] Angelique Lira Notes Date Note Type Note Provider Name a nd Address Organization Details Recorded Time 07/04/2017 text/html Began valsartan 05/30/2017 feels better checking home BP's, consistently better than previous, usually 120's/70-80 Lola Lind NP, [address] [place] [address], [phone], [facility] 07/04/2017 12:18:11 OBGyn Episode No OBEpisode recorded.
[2024-04-04 06:30] LABS: MANUAL DIFF FLAG NO
[2024-04-04 07:35] LABS: Basophils Percent Auto 0.2 % (0-2); Eosinophils Percent Auto 0.2 % (0-4); Hematocrit 40.6 % (37.0-47.0); Hemoglobin 13.5 g/dl (12.0-16.0); Imm Gran Abs Auto 0.01 X10*3/uL (0.00-0.03); Imm Gran Pct Auto 0.2 % (0.0-0.4); Lymphocytes Absolute Auto 1.7 X10*3/uL (1.2-4.9); Lymphocytes Percent Auto 37.1 % (20-40); Mean Corpuscular HGB Conc 33.3 g/dl (31.0-35.0); Mean Corpuscular Hemoglobin 30.3 pg (27.0-33.0); Mean Corpuscular Volume 91.2 fL (80.0-98.0); Mean Platelet Volume 10.8 fL (9.4-12.3); Monocytes Absolute Auto 0.3 X10*3/uL (0.1-1.2); Monocytes Percent Auto 6.3 % (2-11); Neutrophils Absolute Auto 2.5 x10*3/uL (2.0-8.3); Platelet Count 223 X10*3/uL (160-400); Red Blood Count 4.45 X10*6/uL (4.20-5.50); Red Cell Distribution Width 13.6 % (11.0-16.0); White Blood Count 4.5 X10*3/uL (4.8-10.8)
[2024-04-04 07:37] LABS: Appearance Urine Clear; Color Urine Yellow; Glucose Urine UA Negative (Negative); Leukocyte Esterase Urine Trace (Negative); Nitrite Urine Negative (Negative); UMIC TRIGGER UACC YES; Urine Blood Negative (Negative); Urine Ketones Trace mg/dL (Negative); Urine Protein Negative (Neg-Trace)
[2024-04-04 07:42] LABS: Bacteria Urine None Seen (None Seen); Hyaline Casts Urine 0-2 /LPF (0-2); RBC Urine 0-2 /HPF (0-2); Squamous Epithelial Cell Urine 0-2 /HPF (0-2); WBC Urine 0-5 /HPF (0-5)
[2024-04-04 08:14] LABS: Alanine Aminotransferase 20 U/L (0-31); Albumin Level 4.3 g/dL (3.5-5.0); Alkaline Phosphatase 55 U/L (39-117); Anion Gap 11 (12-20); Aspartate Amino Transferase 28 U/L (5-31); Bilirubin Total 0.7 mg/dL (0.0-1.0); Blood Urea Nitrogen 17 mg/dL (9-16); Calcium 9.6 mg/dL (8.4-10.2); Carbon Dioxide 27 mmol/L (22-29); Chloride 108 mmol/L (96-108); Cholesterol 181 mg/dL (<200); Estimated Glomerular Filt Rate > 60; Glucose Random 93 mg/dL (60-115); HDL Cholesterol 73 mg/dL (>40); LDL Cholesterol Calculated 98 mg/dL (<100); Potassium 4.4 mmol/L (3.3-5.1); Sodium 142 mmol/L (135-145); Triglycerides 51 mg/dL (<150)
[2024-04-04 08:31] LABS: Free T4 (Free Thyroxine) 1.07 ng/dL (0.71-1.85); Thyroid Stimulating Hormone 1.72 uIU/mL (0.32-4.0); Vitamin D 25-OH Total 39.9 ng/mL (>30)
[2024-04-04 08:36] LABS: Folate 16.6 ng/mL (> or = 4.0); Vitamin B12 424 pg/mL (200-900)
== END 2024-04-04 06:08 | disposition home or self-care (01) ==
LOC: HO.LAB 06:07
PROVIDERS: PCP Internal Medicine; Visit Provider Internal Medicine
DX: E78.5 Hyperlipidemia, unspecified (principal); E78.00 Pure hypercholesterolemia, unspecified; R30.0 Dysuria
CPT/HCPCS: 36415; 80053; 80061; 81001; 82306; 82607; 82746; 84439; 84443; 85025

== ENCOUNTER 2024-05-10 07:55 | Outpatient (REF) | payer MEDICARE, BC, SELFPAY ==
--- NOTE | ~2024-05-10 | MM_ITS ---
EXAMINATION: DXA BONE DENSITY AXIAL HISTORY: Estrogen deficiency TECHNIQUE: DigiFit Dual energy absorptiometry (DEXA) of the lumbar spine, total left hip, and femoral neck was performed. COMPARISON: Comparison is made with the prior examination dated 12/09/2020. FINDINGS: The bone mineral density of the lumbar spine is 1.120 with a T-score of -0.4, and a Z-score of 1.8. This represents a BMD change of -7.4% compared to the prior exam. This is statistically significant. The bone mineral density of the left total hip is 0.930 with a T-score of -0.6, and a Z-score of 1.4. This represents BMD change of -2.7% compared to the prior exam. This is not statistically significant. The bone mineral density of the left femoral neck is 0.948 with a T-score of -0.6, and a Z-score of 1.5. This represents BMD change of 2.7% compared to the prior exam. MM/XR DEXA axial skeleton IMPRESSION: Based on bone mineral density, and according to World Health Organization (WHO) criteria, the diagnosis is consistent with normal bone mineral density. All bone density values are in grams per centimeter squared (g/cm2). Statistically, 68% of repeat scans fall within 1 SD (+/- 0.010 g/cm2 for AP spine L1-L4) and 1 SD (+/- 0.012 g/cm2 for femur total) FRAX is a trademark of the [employer] Met[employer], a World Health Organization (WHO) Collaborating Center. Electronically signed by: Jaiden Spears MD 05/10/2024 08:52 AM EST
--- OUTSIDE RECORDS SUMMARY | 2024-05-10 07:59 | XMS_ITS ---
Author Organization [facility] Address [address] [place] [address] Care Team Providers Care Egg Setter Name Role Phone Kina Fuentes Primary Care Provider Unavailab Jaiden Doherty [phone] Encounters Encounter Location Date Provider Diagnosis [facility] [address] [place] [phone] 01/18/2024 Jaiden Rachel PLAN OF TREATMENT Next Appt Details Provider Name:Jaiden Rachel , 06/12/2024 10:40:00 AM, [address] [place] [address] , [place], [place], [phone],
--- OUTSIDE RECORDS SUMMARY | 2024-05-10 07:59 | XMS_ITS | Data Portability ---
Author Organization [facility], Home Service Address [address] [place] [address] Assessment No assessment recorded. Plan of Treatment [...] Organization Details Recorded Time Essential hypertensi on 82091325 Active 2017 Lola Lind NP, [address] [place], [address], [facility] 8 10:41:18 Irritable bowel syndrome 02541403 Active 2017 Yamilet barry [facility] 8 08:36:37 Acid reflux 785461483 Active 2017 Yamilet barry [facility] 8 08:36:57 Hyperchole sterolemia 53750895 Active 2017 Yamilet barry [facility] 8 08:37:10 Problem Notes [...] Not available Not available Not available 07/04/2017 [id number] SNOMED Yamilet barry [facility] 8 08:36:26 Medications Name [...] Updated DateTime 8 161.29 cm 23.5 kg/m2 35890.8 9 g 69 /min 99 % 99 % 124 mm[Hg] 72 mm[Hg] Yamilet Shea [facility] 8 11:18:34 Social History Question Answer Notes LastModified by Organizat ion Details LastModified Time Tobacco Smoking Status Never Smoker Not Available [facility] 01/14/2020 03:36:23 What Was The Date Of Your Most Recent Tobacco Screening? 07/04/2017 [id number] Information not available 01/14/2020 Sex: Unknown Functional Status None recorded. Mental Status None recorded. Family History Nothing Reported. Medical History No medical history recorded. Gynecological HistoryNo gynecological history recorded. Obstetrics History GPAL:G 0 P 0 0 0 0 Immunizations Vaccine Type Date Status Note Provider Nam e and Address Organization Details Recorded Time Tdap 10/12/2017 completed Lola Lind NP, S [address] [place] [address], [phone], [facility] 10/20/2017 08:49:35 Past Encounters Encounter ID Performer Location Encounter Start Date Encounter Closed Date Diagnosis/Indication Diagnosis SNOMED-CT Code Diagnosis ICD10 Code Diagnosis Note [id number] Lola Lind NP, S [facility] [address] [place] [address],[place] [address] 07/04/2017 11:10:01 07/04/2017 14:16:58 Essential hypertension 67868910 I10 improved with valsartan, reviewed labs Health Concerns Section Related Observation LastModified by Organization Detai ls LastModified Time None Recorded Concern Status LastModified by Organization Details LastModified Time None Recorded Advance Directives Directive None Recorded Payers Encounter Date Sequence Insurance Name Policy Number Policy Deleon Covered Member ID Deleon Member ID Guarantor Name 07/04/2017 1 [place] Angelique Lira [id number] Angelique Lira 07/04/2017 2 [place] [id number] Angelique Lira [id number] Angelique Lira Notes Date Note Type Note Provider Name a nd Address Organization Details Recorded Time 07/04/2017 text/html Began valsartan 05/30/2017 feels better checking home BP's, consistently better than previous, usually 120's/70-80 Lola Lind NP, S [address] [place] [address], [phone], [facility] 07/04/2017 12:18:11 OBGyn Episode No OBEpisode recorded.
--- OUTSIDE RECORDS SUMMARY | 2024-05-10 07:59 | XMS_ITS ---
Author Organization [facility] Address [address] [place] [address] Care Team Providers Care Liaison Planner Name Role Phone Kina Fuentes Primary Care Provider UnavailJaiden Pond Unavailable [phone] ALLERGIES Allergen (clinical drug ingredient) Drug/Non Drug [...] confirmed History of polyp of colon (situation) (909887609) VITAL SIGNS Temperature 98.2 degrees Fahrenheit 03/12/20 24 Blood pressure systolic 001 mm Hg 03/12/20 24 Blood pressure diastolic 01 mm Hg 024 Height 63 in 03/12/2024 Weight 116.8 lbs 03/12/2024 BMI 20.69 kg/m2 03/12/2024 Encounters Encounter Location Date Provider Diagnosis [facility] [address] [place] [address] 03/12/2024 Jaiden Rachel Gastroesophageal ref lux disease, [...] Provider Name:Jaiden Rachel , 06/12/2024 10:40:00 AM, [address] [place] [address] , [place], [place], [phone], Progress Notes * Examination Category Sub-Category Detail [...]
--- OUTSIDE RECORDS SUMMARY | 2024-05-10 08:00 | XMS_ITS | Patient Health Record ---
Author Organization [facility] Address [address] [place] [address] Care Team Providers Care Paper Inserter Name Role Phone Kina Fuentes Primary Care Provider UnavailJaiden Pond Unavailable [phone] ALLERGIES Allergen (clinical drug ingredient) Drug/Non Drug [...] W/U Status Risk SNOMED Code Notes Problem Encounter for screening for malignant neoplasm of colon (Z12.11) Active confirmed 560569001 Problem Personal history of colonic polyps (Z86.010) Active confirmed History of polyp of colon (situation) (417852087) Problem Irritable bowel syndrome with diarrhea (K58.0) Active confirmed 230270377 Problem Gastroesophageal reflux disease, esophagitis presence not specified (K21.9) Active confirmed 351455464 VITAL SIGNS Temperature 98.2 degrees Fahrenheit 03/12/2024 Blood pressure diastolic 01 mm Hg 03/12/2024 Height 63 in 03/12/2024 Blood pressure systolic 001 mm Hg 03/12/2024 Weight 116.8 lbs 03/12/2024 BMI 20.69 kg/m2 03/12/2024 Encounters Encounter Location Date Provider Diagnosis [facility] [address] [place] [address] 03/12/2024 Jaiden Rachel Gastroesophageal ref lux disease, esophagitis presence not specified K21.9 ; Irritable bowel syndrome with diarrhea K58.0 ; Encounter for screening for malignant neoplasm of colon Z12.11 and Personal history of colonic polyps Z86.010 [facility] [address] [place] [address] 01/18/2024 Jaiden Rachel ASSESSMENTS Encounter Date Diagnosis [...] 06/12/2024 10:40:00 AM, [address] , [place], [place], [phone], Insurance Providers Payer Name Payer Address Payer Phone Subscriber Number Group Number Insured Name Patient Relationship to Insured Coverage Start Date Coverage End Date MEDICARE OF [place] [address] [place] [address] [id number] MERI RODRIGUEZ Self - patient is the insured [facility] [address] [place] [address] [id number] MERI RODRIGUEZ Self - patient is the insured MEDICAL (GENERAL) HISTORY Medical History History ICD Code Hypertension Denies PA,DM,CVA,Lung disease,renal dise ase IBS--with diarrhea > constipation--flower l duodenal biopsies in 2018 She reports negative colonoscopies > 20 yrs ago in [place] and [place] Anxiety Hyperlipidemia GERD--Upper endoscopy in Dec--small hiatal hernia, no esophagitis nor Leroy's esophagus, and duodenal biopsies negative for celiac disease Colonoscopy in December 2018 with a small tubular adenoma removed. There was no inflammatory bowel disease nor any sign of microscopic colitis on biopsies Surgical History Surgery Date(Month/Year) BLU Cholecystectomy Tonsillectomy
== END 2024-05-10 07:56 | disposition home or self-care (01) ==
LOC: HO.MAMMO 07:55
PROVIDERS: PCP Internal Medicine; Visit Provider Internal Medicine
DX: M81.0 Age-related osteoporosis without current pathological fracture (principal)
CPT/HCPCS: 77080

== ENCOUNTER → 2024-05-10 08:15 | Outpatient (BNV) | payer MEDICARE, BC, SELFPAY | PROVIDERS: PCP Internal Medicine; Visit Provider Radiology Diagnostic Radiology | DX: E28.39 Other primary ovarian failure (principal) | CPT/HCPCS: 77080 ==

== ENCOUNTER 2024-06-12 09:15 | Day surgery (SDC) | payer MEDICARE, BC, SELFPAY ==
--- OUTSIDE RECORDS SUMMARY | 2024-04-30 14:40 | XMS_ITS | Data Portability ---
Author Organization [facility], Home Service Address [address] [place] [address] Assessment No assessment recorded. Plan of Treatment [...] Organization Details Recorded Time Essential hypertensi on 02628218 Active 2017 Lola Lind NP, [address] [place], [address], [facility] 8 10:41:18 Irritable bowel syndrome 95649671 Active 2017 Yamilet barry [facility] 8 08:36:37 Acid reflux 352942997 Active 2017 Yamilet barry [facility] 8 08:36:57 Hyperchole sterolemia 11458087 Active 2017 Yamilet barry [facility] 8 08:37:10 Problem Notes None [...] Not available Not available Not available 07/04/2017 [id number] SNOMED Yamilet barry [facility] 8 08:36:26 Medications Name Sig [...] Updated DateTime 8 161.29 cm 23.5 kg/m2 04087.8 9 g 69 /min 99 % 99 % 124 mm[Hg] 72 mm[Hg] Yamilet Shea [facility] 8 11:18:34 Social History Question Answer Notes LastModified by Organizat ion Details LastModified Time Tobacco Smoking Status Never Smoker Not Available [facility] 01/14/2020 03:36:23 What Was The Date Of Your Most Recent Tobacco Screening? 07/04/2017 [id number] Information not available 01/14/2020 Sex: Unknown Functional Status None recorded. Mental Status None recorded. Family History Nothing Reported. Medical History No medical history recorded. Gynecological HistoryNo gynecological history recorded. Obstetrics History GPAL:G 0 P 0 0 0 0 Immunizations Vaccine Type Date Status Note Provider Nam e and Address Organization Details Recorded Time Tdap 10/12/2017 completed Lola Lind NP, S [address] [place] [address], [address], [facility] 10/20/2017 08:49:35 Past Encounters Encounter ID Performer Location Encounter Start Date Encounter Closed Date Diagnosis/Indication Diagnosis SNOMED-CT Code Diagnosis ICD10 Code Diagnosis Note [id number] Lola Lind NP, S [facility] [address] [place] [address],[place] [address] 07/04/2017 11:10:01 07/04/2017 14:16:58 Essential hypertension 09975928 I10 improved with valsartan, reviewed labs Health Concerns Section Related Observation LastModified by Organization Detai ls LastModified Time None Recorded Concern Status LastModified by Organization Details LastModified Time None Recorded Advance Directives Directive None Recorded Payers Encounter Date Sequence Insurance Name Policy Number Policy Deleon Covered Member ID Deleon Member ID Guarantor Name 07/04/2017 1 [place] Angelique Lira [id number] Angelique Lira 07/04/2017 2 [place] [id number] Angelique Lira [id number] Angelique Lira Notes Date Note Type Note Provider Name a nd Address Organization Details Recorded Time 07/04/2017 text/html Began valsartan 05/30/2017 feels better checking home BP's, consistently better than previous, usually 120's/70-80 Lola Lind NP, S [address] [place] [address], [phone], [facility] 07/04/2017 12:18:11 OBGyn Episode No OBEpisode recorded.
--- OUTSIDE RECORDS SUMMARY | 2024-04-30 14:40 | XMS_ITS | Patient Health Record ---
Author Organization [facility] Address [address] [place] [address] Care Team Providers Care Rodeo Clown Name Role Phone Kina Fuentes Primary Care Provider UnavailJaiden Pond Unavailable [phone] ALLERGIES Allergen (clinical drug ingredient) Drug/Non Drug Allergy documented on EMR Reaction Allergy Type Onset Date Status fentanyl Fentanyl Unknown Drug Allergy Active seasonal (uncoded) Unknown Allergy A ctive REASON FOR REFERRAL No Information MEDICATIONS Medication SIG (Take, Route, Frequency, Duration) Notes Start Date End Date Status amLODIPine Besylate 2.5 MG 1 tablet Orally Once a day Active Simvastatin 40 MG 1 tablet in the even ing Orally Once a day for 30 day(s) Active Escitalopram Oxalate 5 MG 1 tablet Orall y Once a day for 30 day(s) Active Loratadine 10 MG 1 capsule Orally Onc e a day as needed Active Omeprazole 20 MG 1 capsule 1/2 to 1 h our before morning meal Orally Once a day Active IMMUNIZATIONS Vaccine Route Administration Date Status Comme nts Influenza Unknown 12/06/2017 Administered Influenza Unknown 02/13/2024 Administered SOCIAL HISTORY Tobacco Use: Social History Observation Description Date Details (start date - stop date) Never Smoker NA - NA Sex Assigned At : Social History Observation Description Sex Assigned At Unknown Tobacco Use/Smoking Question Answer Notes Patient is a nonsmoker Alcohol Screen Question Answer Notes Did you have a drink contain ing alcohol in the past year? Yes How often did you have a dri nk containing alcohol in the past year? 2 to 4 times a month (2 points) How many drinks did you have on a typical day when you were drinking in the past year? 1 or 2 drinks (0 point) How often did you have 6 or more drinks on one occasion in the past year? Never (0 point) Points 2 Interpretation Negative PROBLEMS Problem Type ICD Code Onset Dates Problem Status W/U Status Risk SNOMED Code Notes Problem Gastroesophageal reflux disease, esophagitis presence not specified (K21.9) Active confirmed 436815952 Problem Irritable bowel syndrome with diarrhea (K58.0) Active confirmed 471103768 Problem Encounter for screening for malignant neoplasm of colon (Z12.11) Active confirmed 956585023 Problem Personal history of colonic polyps (Z86.010) Active confirmed History of polyp of colon (situation) (791543824) VITAL SIGNS Temperature 98.2 degrees Fahrenheit 03/12/2024 Blood pressure diastolic 01 mm Hg 03/12/2024 Height 63 in 03/12/2024 Blood pressure systolic 001 mm Hg 03/12/2024 Weight 116.8 lbs 03/12/2024 BMI 20.69 kg/m2 03/12/2024 Encounters Encounter Location Date Provider Diagnosis [facility] [address] [place] [address] 03/12/2024 Jaiden Rachel Gastroesophageal ref lux disease, esophagitis presence not specified K21.9 ; Irritable bowel syndrome with diarrhea K58.0 ; Encounter for screening for malignant neoplasm of colon Z12.11 and Personal history of colonic polyps Z86.010 [facility] [address] [place] [address] 01/18/2024 Jaiden Rachel ASSESSMENTS Encounter Date Diagnosis Assessment Notes Treatment Notes Treatment Clinical Notes 03/12/2024 Irritable bowel syndrome with diarrhea (ICD-10 - K58.0) 03/12/2024 Gastroesophageal ref lux disease, esophagitis presence not specified (ICD-10 - K21.9) 03/12/2024 Encounter for screen ing for malignant neoplasm of colon (ICD-10 - Z12.11) 03/12/2024 Personal history of colonic polyps (ICD-10 - Z86.010) PLAN OF TREATMENT Future Test Test Name Order Date UPPER GI ENDOSCOPY 08/21/2018 COLONOSCOPY 08/21/2018 COLONOSCOPY 03/12/2024 Next Appt Details Provider Name:Jaiden Rachel , 06/12/2024 10:40:00 AM, [address] , [place], [place], [phone], Insurance Providers Payer Name Payer Address Payer Phone Subscriber Number Group Number Insured Name Patient Relationship to Insured Coverage Start Date Coverage End Date MEDICARE OF [place] [address] [place] [address] [phone] [id number] MERI RODRIGUEZ Self - patient is the insured [facility] [address] [place] [address] [id number] MERI RODRIGUEZ Self - patient is the insured MEDICAL (GENERAL) HISTORY Medical History History ICD Code Hypertension Denies SD,DM,CVA,Lung disease,renal dise ase IBS--with diarrhea > constipation--flower l duodenal biopsies in 2018 She reports negative colonoscopies > 20 yrs ago in [place] and [place] Anxiety Hyperlipidemia GERD--Upper endoscopy in Dec--small hiatal hernia, no esophagitis nor Leroy's esophagus, and duodenal biopsies negative for celiac disease Colonoscopy in December 2018 with a small tubular adenoma removed. There was no inflammatory bowel disease nor any sign of microscopic colitis on biopsies Surgical History Surgery Date(Month/Year) BLU Cholecystectomy Tonsillectomy
--- OUTSIDE RECORDS SUMMARY | 2024-04-30 14:40 | XMS_ITS ---
Author Organization [facility] Address [address] [place] [address] Care Team Providers Care Can Sorter Name Role Phone Kina Fuentes Primary Care Provider Unavailab Jaiden Doherty [phone] Encounters Encounter Location Date Provider Diagnosis [facility] [address] [place] [address] 01/18/2024 Jaiden Rachel PLAN OF TREATMENT Next Appt Details Provider Name:Jaiden Rachel , 06/12/2024 10:40:00 AM, [address] [place] [address] , [place], [place], [phone],
--- OUTSIDE RECORDS SUMMARY | 2024-04-30 14:40 | XMS_ITS ---
Author Organization [facility] Address [address] [place] [address] Care Team Providers Care Agency Recruiter Name Role Phone Kina Fuentes Primary Care Provider UnavailJaiden Pond Unavailable [phone] ALLERGIES Allergen (clinical drug ingredient) Drug/Non Drug Allergy documented on EMR Reaction Allergy Type Onset Date Status fentanyl Fentanyl Unknown Drug Allergy Active seasonal (uncoded) Unknown Allergy A ctive REASON FOR VISIT Patient presents today for a colon recall / upper? MEDICATIONS Medication SIG (Take, Route, Frequency, Duration) Notes Start Date End Date Status Loratadine 10 MG 1 capsule Orally Onc e a day as needed Active Omeprazole 20 MG 1 capsule 1/2 to 1 h our before morning meal Orally Once a day Active amLODIPine Besylate 2.5 MG 1 tablet Orally Once a day Active Simvastatin 40 MG 1 tablet in the even ing Orally Once a day for 30 day(s) Active Escitalopram Oxalate 5 MG 1 tablet Orall y Once a day for 30 day(s) Active SOCIAL HISTORY Tobacco Use: Social History Observation [...] W/U Status Risk SNOMED Code Notes Problem Personal history of colonic polyps (Z86.010) Active confirmed History of polyp of colon (situation) (744415804) VITAL SIGNS BMI 20.69 kg/m2 03/12/2024 Blood pressure systolic 001 mm Hg 03/12/20 24 Blood pressure diastolic 01 mm Hg 024 Height 63 in 03/12/2024 Temperature 98.2 degrees Fahrenheit 03/12/20 24 Weight 116.8 lbs 03/12/2024 Encounters Encounter Location Date Provider Diagnosis [facility] [address] [place] [address] 03/12/2024 Jaiden Rachel Gastroesophageal ref lux disease, esophagitis presence not specified K21.9 ; Irritable bowel syndrome with diarrhea K58.0 ; Encounter for screening for malignant neoplasm of colon Z12.11 and Personal history of colonic polyps Z86.010 ASSESSMENTS Encounter Date Diagnosis Assessment Notes Treatment Notes Treatment Clinical Notes 03/12/2024 Gastroesophageal ref lux disease, esophagitis presence not specified (ICD-10 - K21.9) 03/12/2024 Irritable bowel syndrome with diarrhea (ICD-10 - K58.0) 03/12/2024 Encounter for screen ing for malignant neoplasm of colon (ICD-10 - Z12.11) 03/12/2024 Personal history of colonic polyps (ICD-10 - Z86.010) PLAN OF TREATMENT Medication Medication Name Sig Start Date Stop Date Notes Omeprazole 20 MG 1 capsule 1/2 to 1 h our before morning meal Orally Once a day Future Test Test Name Order Date COLONOSCOPY 03/12/2024 Next Appt Details Follow Up: prn, Reason: Provider Name:Jaiden Rachel , 06/12/2024 10:40:00 AM, [address] [place] [address] , [place], [place], [phone], Progress Notes * Examination Category Sub-Category Detail Notes General Examination GENERAL APPEARANCE: pleasant , well nourished, well developed, in no acute distress HEAD: EYES: sclera non-icteric EARS: NOSE: THROAT: NECK/THYROID: no cervical lymphade nopathy, neck supple HEART: S1, S2 normal CHEST: LUNGS: clear to auscultatio n bilaterally ABDOMEN: normal bowel sounds, no guarding or rigidity, no guarding or rigidity, no masses palpable, soft, nontender, nondistended NEUROLOGIC: alert and oriented SKIN: nonjaundiced, no spi bc angiomata EXTREMITIES: no edema PERIPHERAL PULSES: BACK: BREASTS: MUSCULOSKELETAL: MALE GENITOURINARY: LYMPH NODES: RECTAL EXAM: FEMALE GENITOURINARY: ORAL CAVITY: mucosa moist
[2024-06-10 13:04] VITALS: BMI 20.7
--- NOTE | 2024-06-11 12:00 | HO.ANESPROP2 ---
Documented by User: Malena Clemens NP 06/11/24 12:01 HPI - Anesthesia Eval Consult details Narrative: 74yo F for Colonoscopy PMFSH Active Problems Active Problems: All Active Problems Screening for osteoporosis (Acute) Annual physical exam (Acute) Adult general medical exam (Acute) Left sided sciatica (Acute) Mild recurrent major depression (Acute) Dyslipidemia (Acute) GERD (gastroesophageal reflux disease) (Acute) Essential hypertension (Acute) Past Medical History Medical History (Updated 04/03/24 @ 12:47 by Jack Garcia MD) Mild recurrent major depression Depression Dyslipidemia GERD (gastroesophageal reflux disease) Essential hypertension Family History Family History Mother Dyslipidemia Father Multiple myeloma Surgical History Surgical History (Updated 04/03/24 @ 12:53 by Jack Garcia MD) S/P BLU-BSO History of colonoscopy History of total hysterectomy History of cholecystectomy History of tonsillectomy Social History Social History (Updated 04/03/24 @ 12:54 by Jack Garcia MD) Housing: House Alcohol intake: current Alcohol intake frequency: a few times a week Alcohol type: beer and wine Comment: 2 days weekend 2 drinks Patient Tobacco Use Status: Never used Tobacco Years Smoked: marijuana e-Cigarette/Vaping Use: Never Used Second Hand Smoke Exposure: No Use of substances other than those prescribed or required for medical reasons: Yes Are you DNR?: No Advance Directives: No Advance Directives Information Provided: Yes Patient : No : No Poor oral hygiene: No service: No Current occupational status: retired Cognitive needs: No Hearing needs: No Vision needs: No Meds Allergies Allergy/AdvReac Type Severity Reaction Status Date / Time ROBSON Inhibitors Allergy Intermediate Cough Verified 04/03/24 12:31 Sulfa (Sulfonamide Allergy Intermediate Nausea and Verified 06/10/24 13:03 Antibiotics) Vomiting [SULFA (SULFONAMIDE ANTIBIOTICS)] Home Medications ?Medication ?Instructions ?Recorded ?Confirmed ?Last Taken ?Type loratadine 10 mg tablet 10 mg PO DAILY PRN Allergy Symptoms 06/10/24 06/10/24 Unknown History Exam Height,Weight and Vital Signs: Height 5 ft 3 in Weight 52.98 kg Assessment and Plan Assessment Anesthesia Assessment: Chart Reviewed Documented by User: Max Mata MD 06/12/24 11:36 PMFSH Past Medical History Medical History (Updated 04/03/24 @ 12:47 by Jack Garcia MD) Mild recurrent major depression Depression Dyslipidemia GERD (gastroesophageal reflux disease) Essential hypertension Family History Family History Mother Dyslipidemia Father Multiple myeloma Family history of problems with anesthesia: No Surgical History Surgical History (Updated 04/03/24 @ 12:53 by Jack Garcia MD) S/P BLU-BSO History of colonoscopy History of total hysterectomy History of cholecystectomy History of tonsillectomy History of Problems with Anesthesia: No Social History Social History (Updated 04/03/24 @ 12:54 by Jack Garcia MD) Housing: House Alcohol intake: current Alcohol intake frequency: a few times a week Alcohol type: beer and wine Comment: 2 days weekend 2 drinks Patient Tobacco Use Status: Never used Tobacco Years Smoked: marijuana e-Cigarette/Vaping Use: Never Used Second Hand Smoke Exposure: No Use of substances other than those prescribed or required for medical reasons: Yes Are you DNR?: No Advance Directives: No Advance Directives Information Provided: Yes Patient : No : No Poor oral hygiene: No service: No Current occupational status: retired Cognitive needs: No Hearing needs: No Vision needs: No Meds Allergies Allergy/AdvReac Type Severity Reaction Status Date / Time ROBSON Inhibitors Allergy Intermediate Cough Verified 04/03/24 12:31 Sulfa (Sulfonamide Allergy Intermediate Nausea and Verified 06/10/24 13:03 Antibiotics) Vomiting [SULFA (SULFONAMIDE ANTIBIOTICS)] Home Medications ?Medication ?Instructions ?Recorded ?Confirmed ?Last Taken ?Type loratadine 10 mg tablet 10 mg PO DAILY PRN Allergy Symptoms 06/10/24 06/10/24 Unknown History Exam Airway Mallampati Class: I TM Dist: >3cm Neck ROM: Full Loose/Missing/Broken Teeth: No Heart: ok Lungs: ok Assessment and Plan Assessment Anesthesia Assessment: Anesthesia Plan Discussed Final Anesthetic Review Family History of Problems with Anesthesia: No History of Problems with Anesthesia: No NPO: Yes ASA Class: II and III Final Preanesthetic Review: No Changes in Pt Med Stat, Meds/Allgs Chart Reviewed, Consent Obtained/Reviewed and Anes Risks/Benef Reviewed Patient Risk: Intermediate Procedure Risk: Low Anesthetic Plan Anesthetic Plan: MAC: and Agree w/ Assess. and Plan Disposition: Standard PACU
[2024-06-12 09:49] VITALS: BP 144/59; PULSE 64; RESP 16; TEMP 37.2; O2SAT 100
[2024-06-12] MEDS: Lactated Ringers 1,000 ML 100 ML IVCONT (09:59)
[2024-06-12 12:06] VITALS: BP 100/46; PULSE 64; RESP 18; TEMP 36.2; O2SAT 99
--- NOTE | 2024-06-12 12:13 | PM.OP ---
Brief Operative Note Date of Service: 06/12/24 Pre-op diagnosis: Screening Post-op diagnosis: other (Diverticulosis) Procedure: Colonoscopy to the cecum Surgeon: Jaiden Rachel MD Anesthesia: MAC Was an Link Trainer Mechanic used for this Procedure?: No Estimated blood loss (mL): 0 Pathology: none sent Condition: stable Disposition: PACU
[2024-06-12 12:21] VITALS: BP 108/63; PULSE 61; RESP 16; TEMP 36.2; O2SAT 100
--- NOTE | 2024-06-12 13:57 | OP_ITS ---
DATE OF SERVICE: 06/12/2024 SURGEON: Jaiden Rachel MD INDICATIONS: The patient presents for followup of personal history of tubular adenoma of the colon and colorectal cancer screening. Full consent has been obtained from her for this, including risks of bleeding and perforation. PREOPERATIVE DIAGNOSIS: Colorectal cancer screening. POSTOPERATIVE DIAGNOSIS: PROCEDURE PERFORMED: Colonoscopy to the cecum. ESTIMATED BLOOD LOSS: COMPLICATIONS: ANESTHESIA: Medication used, monitored anesthesia care. ASSISTANTS: SPECIMENS: POSTOPERATIVE DIAGNOSES: Colorectal cancer screening, diverticulosis, and internal hemorrhoids. DESCRIPTION OF PROCEDURE: The patient was placed in the left lateral decubitus position. The digital rectal exam revealed no abnormalities. The Olympus video pediatric colonoscope was entered into the rectum and advanced easily to the cecum. Once in the cecum, I did identify normal-appearing cecal pouch with appendiceal orifice and a normal-appearing ileocecal valve. The entire cecum and ileocecal valve appeared normal. There was transillumination of light deep in the right lower quadrant. The scope was slowly withdrawn assessing all mucosal surfaces carefully. Preparation was excellent. I did not visualize any sign of polyps, colitis, nor angiodysplasia. There was a mild amount of sigmoid diverticulosis. In the rectum, scope was retroflexed visualizing internal hemorrhoids, but no other pathology. The rectal mucosa appeared normal. Scope was straightened and withdrawn from the patient. She tolerated the procedure well and was returned to the recovery area in stable condition. IMPRESSION: 1. Diverticulosis. 2. Internal hemorrhoids. PLAN: Given today's negative exam, her age, and previously just minimal findings on her other colonoscopies, I do not think she would need any further screening colonoscopies. As such, she will see me again on a p.r.n. basis. MD BROCK Beard/TAMARAL / [phone]
== END 2024-06-12 12:40 | disposition home or self-care (01) ==
PROVIDERS: PCP Internal Medicine; Visit Provider Internal Medicine
PROC: 0DJD8ZZ Inspection of Lower Intestinal Tract, Via Natural or Artificial Opening Endoscopic (ICD-10-PCS; CPT 45378; principal; 2024-06-12 10:40)
DX: Z12.11 Encounter for screening for malignant neoplasm of colon (principal); Z86.0101 Personal history of adenomatous and serrated colon polyps; K57.30 Diverticulosis of large intestine without perforation or abscess without bleeding; K64.8 Other hemorrhoids; K58.0 Irritable bowel syndrome with diarrhea; K21.9 Gastro-esophageal reflux disease without esophagitis; I10 Essential (primary) hypertension; E78.5 Hyperlipidemia, unspecified; F41.9 Anxiety disorder, unspecified; Z90.49 Acquired absence of other specified parts of digestive tract; J30.2 Other seasonal allergic rhinitis; Z79.899 Other long term (current) drug therapy; Z88.8 Allergy status to other drugs, medicaments and biological substances; Z88.2 Allergy status to sulfonamides; Z98.890 Other specified postprocedural states
CPT/HCPCS: G0105; J2003; J2704

== ENCOUNTER 2024-07-05 08:29 | Outpatient (AMB) | payer MEDICARE, BC, SELFPAY ==
--- OUTSIDE RECORDS SUMMARY | 2024-07-05 08:33 | XMS_ITS | Data Portability ---
Author Organization [facility] Address [address] [place] [address] Assessment No assessment recorded. Plan of Treatment [...] Organization Details Recorded Time Essential hypertensi on 19217178 Active 2017 Lola Lind NP, [address] [place], [phone], [facility] 8 10:41:18 Irritable bowel syndrome 03982546 Active 2017 Yamilet barry [facility] 8 08:36:37 Acid reflux 648466492 Active 2017 Yamilet barry [facility] 8 08:36:57 Hyperchole sterolemia 88502292 Active 2017 Yamilet barry [facility] 8 08:37:10 Problem Notes [...] Not available Not available Not available 07/04/2017 [id number] SNOMED Yamilet barry [facility] 8 08:36:26 Medications Name [...] Updated DateTime 8 161.29 cm 23.5 kg/m2 45618.8 9 g 69 /min 99 % 99 % 124 mm[Hg] 72 mm[Hg] Yamilet Shea [facility] 8 11:18:34 Social History Question Answer Notes LastModified by Organizat ion Details LastModified Time Tobacco Smoking Status Never Smoker Not Available [facility] 01/14/2020 03:36:23 What Was The Date Of Your Most Recent Tobacco Screening? 07/04/2017 [id number] Information not available 01/14/2020 Sex: Unknown Functional Status None recorded. Mental Status None recorded. Family History Nothing Reported. Medical History No medical history recorded. Gynecological HistoryNo gynecological history recorded. Obstetrics History GPAL:G 0 P 0 0 0 0 Immunizations Vaccine Type Date Status Note Provider Nam e and Address Organization Details Recorded Time Tdap 10/12/2017 completed Lola Lind NP, [address] [place] [address], [phone], [facility] 10/20/2017 08:49:35 Past Encounters Encounter ID Performer Location Encounter Start Date Encounter Closed Date Diagnosis/Indication Diagnosis SNOMED-CT Code Diagnosis ICD10 Code Diagnosis Note [id number] Dung Delarosa [facility] [address] [place] [address],[place] [address] 07/04/2017 11:10:01 07/04/2017 14:16:58 Essential hypertension 14427125 I10 improved with valsartan, reviewed labs Health Concerns Section Related Observation LastModified by Organization Detai ls LastModified Time None Recorded Concern Status LastModified by Organization Details LastModified Time None Recorded Advance Directives Directive None Recorded Payers Encounter Date Sequence Insurance Name Policy Number Policy Deleon Covered Member ID Deleon Member ID Guarantor Name 07/04/2017 1 [place] [employer] Angelique Lira [id number] Angelique Lira 07/04/2017 2 [place] [id number] Angelique Lira [id number] Angelique Soraya Notes Date Note Type Note Provider Name a nd Address Organization Details Recorded Time 07/04/2017 text/html Began valsartan 05/30/2017 feels better checking home BP's, consistently better than previous, usually 120's/70-80 Lola Lind NP, [address] [place] [address], [phone], [facility] 07/04/2017 12:18:11 OBGyn Episode No OBEpisode recorded.
[2024-07-05 08:38] VITALS: BP 102/58; PULSE 68; O2SAT 97
--- NOTE | 2024-07-05 08:38 | A.OFFPC_ITS ---
Vital Signs 07/05/24 08:38 07/05/24 09:03 Height 5 ft 3 in Weight 113 lb BMI 20.0 BP 102/58 L 140/80 H Blood Pressure Location Lt brachial Lt brachial Position Sitting Sitting Pulse 68 Pulse Source Pulse Oximeter Pulse Oximetry (%) 97 Oxygen Delivery Method Room Air Intake Visit Reasons: Hypertension Allergies ROBSON Inhibitors Allergy (Intermediate, Verified 07/05/24 08:38) Cough Sulfa (Sulfonamide Antibiotics) [SULFA (SULFONAMIDE ANTIBIOTICS)] Allergy (Intermediate, Verified 07/05/24 08:38) Nausea and Vomiting Medication List - Last Reconciled 07/05/24 by Jack Garcia MD amlodipine 2.5 mg PO DAILY atorvastatin 10 mg PO DAILY blood pressure monitor (Blood Pressure Kit) As directed escitalopram oxalate 5 mg PO DAILY 90 days loratadine 10 mg PO DAILY PRN omeprazole 20 mg PO DAILY 90 days Tobacco use date assessed: 07/05/24 Fall risk assessment: No Falls in past year Last assessed Fall Risk: 07/05/24 Dental Screening Dental Screen Date: 07/05/24 Did you have a dental visit in the last 12 months?: Yes Did you have a dental problem in the last 6 months where you did not have access to dental care?: No Was dental information given to patient?: Patient has dentist [facility] Medical History (Updated 04/03/24 @ 12:47 by Jack Garcia MD) Mild recurrent major depression Depression Dyslipidemia GERD (gastroesophageal reflux disease) Essential hypertension Surgical History (Updated 04/03/24 @ 12:53 by Jack Garcia MD) S/P BLU-BSO History of colonoscopy History of total hysterectomy History of cholecystectomy History of tonsillectomy Family History Mother Dyslipidemia Father Multiple myeloma Social History (Updated 04/03/24 @ 12:54 by Jack Garcia MD) Housing: House Alcohol intake: current Alcohol intake frequency: a few times a week Alcohol type: beer and wine Comment: 2 days weekend 2 drinks Patient Tobacco Use Status: Never used Tobacco Tobacco use type: Cigarette Years Smoked: marijuana e-Cigarette/Vaping Use: Never Used Second Hand Smoke Exposure: No service: No Current occupational status: retired Cognitive needs: No Hearing needs: No Vision needs: Yes Questionnaire PHQ-9 Over the last 2 weeks, how often have you been bothered by any of the following problems? 1. Little interest or pleasure in doing things: not at all 2. Feeling down, depressed, or hopeless: not at all 3. Trouble falling or staying asleep, or sleeping too much: not at all 4. Feeling tired or having little energy: not at all 5. Poor appetite or overeating: not at all 6. Feeling bad about yourself - or that you are a failure or have let yourself or your family down: not at all 7. Trouble concentrating on things, such as reading the newspaper or watching television: not at all 8. Moving or speaking so slowly that other people could have noticed. Or the opposite - being so fidgety or restless that you have been moving around a lot more than usual: not at all 9. Thoughts that you would be better off or of hurting yourself in some way: not at all Total score: 0 Depression Screening Interpretation: Negative Depression Screening Done: Yes 61320 - PHQ-9 Billing: Yes Source: Developed by Drs. Jaiden Albert, Brittany Meek, Gilbert Cote and colleagues, with an educational wolfgang from [employer]. Thrive Questionnaire Date Thrive assessed: 04/03/24 ALBER-7 AMB Questionnaire ALBER-7 Date ALBER - 7 assessed: 04/03/24 Source: Developed by Drs. Jaiden Albert, Brittany Meek, Gilbert Cote and colleagues, with an educational wolfgang from [employer]. Physical exam (Primary Care) Vital Signs: Last Vital Signs Pulse 68 07/05/24 08:38 BP 140/80 H 07/05/24 09:03 Pulse Ox 97 07/05/24 08:38 Oxygen Delivery Method Room Air 07/05/24 08:38 BMI result Body Mass Index 20.0 Tobacco/Smoking Status: Tobacco use Status Tobacco use date assessed 07/05/24 07/05/24 08:44 Patient Tobacco Use Status Never used Tobacco 07/05/24 08:44 Tobacco use type Cigarette 07/05/24 08:44 e-Cigarette/Vaping Use Never Used 07/05/24 08:44 PHQ-9: PHQ-9 Score PHQ-9: Total score 0 07/05/24 08:54 Depression Screening Interpretation: Negative Thrive Assessment: Date of Thrive Assessment Date Thrive assessed 04/03/24 07/05/24 08:44 Const General: alert; No acute distress Eyes Conjunctivae: conjunctivae normal Resp Auscultation: clear to auscultation bilaterally Cardio Rate: regular rate Rhythm: regular rhythm GI Inspection: Yes normal to inspection Extrem General: Yes normal to inspection and No edema Coding Level of Care Code Est Pt Level 4 (43407) Diagnoses Essential hypertension I10 GERD (gastroesophageal reflux disease) K21.9 Dyslipidemia E78.5 Mild recurrent major depression F33.0 Additional Codes PHQ-9 - 64978 - PHQ-9 Billing: Yes ([id number]) Assessment & Plan Assessment & Plan (1) Essential hypertension: Code(s): I10 - Essential (primary) hypertension Category: Medical Plan: Continue with blood pressure medication. Decrease salt intake and exercise concern about the low blood pressure (2) GERD (gastroesophageal reflux disease): Code(s): K21.9 - Gastro-esophageal reflux disease without esophagitis Category: Medical Plan: Avoid the foods that causes that usually spicy foods, tomato products, juices, coffee, soda and foods that your sensitive to. After eating do not lie down, allow 3-4 hours before in lie down. And keep the head of bed above 30 degrees to avoid the acid from going up. (3) Dyslipidemia: Code(s): E78.5 - Hyperlipidemia, unspecified Category: Medical Plan: Avoid fried foods, chicken skin, eggs, butter margarine, pastries and meat. Be it pork or beef they have a lot of cholesterol on atorvastatin 10 mg once a (4) Mild recurrent major depression: Code(s): F33.0 - Major depressive disorder, recurrent, mild Category: Medical Plan: Continue with present medication Plan History of Present Illness The patient is a 74-year-old female presenting with a follow-up visit for management of hypertension and other chronic conditions. She has a history of essential hypertension with recent reports of low systolic blood pressure readings at home, raising concerns about medication management. Blood pressure readings are reported to fluctuate, but home readings sometimes indicate systolic values less than 110 mmHg, while clinic visits sometimes show higher measurements that reach 140 mmHg. Recent lab work indicates a normal blood count with mild leukopenia, normal electrolyte balance, and satisfactory renal, liver, and thyroid function. Cholesterol levels are well-managed on atorvastatin therapy. Previous diagnostic procedures include a colonoscopy in June 2024, a mammogram in December 2023, and a bone density scan in April 2024, showing typical results. The patient denies any new or worsening symptoms beyond her concern about variability in blood pressure readings and adheres to an active lifestyle, which includes occasional physical activity such as mowing the lawn. Her preventive health measures are up to date, including recent vaccinations. Health Maintenance - Up-to-date mammogram (December 2023) - Normal bone density scan (April 2024) - Colonoscopy with tubular adenoma findings (June 2024) - Bloodwork: Normal counts, mild leukopenia, well-managed cholesterol levels with atorvastatin - Regular physical activity, maintains a healthy lifestyle - Recent pneumonia vaccination; plans for second dose in future Social History - Engages in outdoor activities such as mowing the lawn - Actively maintains a healthy lifestyle with attention to diet and sodium intake - Denies significant salt intake - Consistent with fluid intake, reports increased water consumption Review of Systems - Cardiovascular: Reports concern with variable blood pressure measurements - Endocrine: Reports normal endocrinal tests - Musculoskeletal: Denies any specific complaints - Gastrointestinal: Denies other significant symptoms beyond known GERD - Neurological: Denies any new neurological symptoms Physical Exam - Cardiovascular- Heart sounds were noted during auscultation Results - Labs: Normal blood count, mild leukopenia, normal electrolyte balance, normal renal, and liver function, cholesterol level at 98 mg/dL due to atorvastatin - Tests: Colonoscopy with tubular adenoma (June 2024), bone density normal (April 2024), mammogram up to date (December 2023) Plan The patient's hypertension management plan includes monitoring blood pressure closely with the use of a home blood pressure monitor obtained from a medical supply store. She is to track her blood pressure at least two to three times weekly, in a relaxed setting, with results to be reviewed at the next visit. Atorvastatin therapy for controlling hypercholesterolemia remains effective and is continued. Recent bloodwork is satisfactory, reaffirming the patient's wellness targets. Recommendations for a healthy diet low in sodium and regular physical activity are reiterated, along with ongoing GERD and depression management strategies. Vaccination schedules are maintained, with the second pneumonia vaccine planned for future years. Prescription renewal processes through existing channels are confirmed. Patient was informed and verbally consented to the use of an ambient scribe for clinic note documentation during this visit. Discussion Notes I discussed the importance of consistent blood pressure monitoring with the patient, explaining the possibility of obtaining either a home or ambulatory monitor for accuracy in variable blood pressure recordings. I outlined the benefits of maintaining current antihypertensive and atorvastatin therapy, emphasizing the significance of lifestyle factors in hypertension and cholesterol control. The potential risks of unmanaged hypertension and cholesterol levels were reviewed, as well as the advantages of a proactive approach to overall health care. I informed the patient about follow-up plans, including monitoring blood pressure readings from home and evaluating these findings during future appointments. Preventive measures were reaffirmed through ongoing vaccination awareness and continued health maintenance practices. Patient Instructions - Obtain a home blood pressure monitor from a medical supply store. - Record blood pressure two to three times a week in a relaxed state. - Continue taking atorvastatin 10 mg daily for cholesterol management. - Maintain a healthy diet, avoiding high sodium foods. - Stay physically active with regular exercises such as walking. - Monitor and report any significant changes in blood pressure readings. - Keep vaccinations updated, including potential future pneumonia vaccine. - Follow up with blood pressure and health monitoring in subsequent visits. Medications: New blood pressure monitor (Blood Pressure Kit) As directed 1 ea 0RF I10 - Essential (primary) hypertension
[2024-07-05 09:03] VITALS: BP 140/80
== END 2024-07-05 09:10 | disposition home or self-care (01) ==
LOC: HO.HMCH 08:30
PROVIDERS: PCP Internal Medicine; Visit Provider Internal Medicine
DX: I10 Essential (primary) hypertension (principal); K21.9 Gastro-esophageal reflux disease without esophagitis; E78.5 Hyperlipidemia, unspecified; F33.0 Major depressive disorder, recurrent, mild

== ENCOUNTER → 2024-07-05 08:29 | Outpatient (BNVA) | payer MEDICARE, BC, SELFPAY | PROVIDERS: PCP Internal Medicine; Visit Provider Internal Medicine | DX: I10 Essential (primary) hypertension (principal); K21.9 Gastro-esophageal reflux disease without esophagitis; E78.5 Hyperlipidemia, unspecified; F33.0 Major depressive disorder, recurrent, mild | CPT/HCPCS: 96127; 99212 ==

== ENCOUNTER 2024-11-01 08:27 | Outpatient (AMB) | payer MEDICARE, BC, SELFPAY ==
--- OUTSIDE RECORDS SUMMARY | 2024-06-12 06:40 | XMS_ITS ---
Author Organization [facility] Address [address] [place] [address] Care Team Providers Care Sweatband Flanger Name Role Phone Kina Fuentes Primary Care Provider Unavailab Jaiden Doherty [phone] REASON FOR VISIT screening,hx polyps Encounters Encounter Location Date Provider Diagnosis [facility] [place] [place] Outpatient [address] [place] [address] [phone] 06/12/2024 Jaiden Rachel Colon cancer scree sita Z12.11 ; Personal history of colonic polyps Z86.0100 ; Diverticulosis of large intestine without perforation or abscess without bleeding K57.30 and Other hemorrhoids K64.8 Assessments Encounter Date Diagnosis (ICD Code) Assessment Notes Treatment Notes Treatment Clinical Notes Section Notes 06/12/2024 Colon cancer screening (ICD-10 - Z12.11) 06/12/2024 Personal history of colonic polyps (ICD-10 - Z86.0100) 06/12/2024 Diverticulosis of large intestine without perforation or abscess without bleeding (ICD-10 - K57.30) 06/12/2024 Other hemorrhoids (ICD-10 - K64.8) Plan Of Treatment No Information Progress Notes * RIVERA RODRIGUEZOB: (74 yo F)Acc No.[id number]:06/12/2024 COLON WITH MAC Patient: Emy MERI AKHTAR Provider: Zackary Rachel MD :1950 A ge:74 Y S ex:Female Date:06/12/2024 Address:[address] [place] [address], [id number] Pcp:Kina Shane Subjective: * Chief Complaints: * 1 . Screening,hx polyps. * Medical History: Objective: * Vitals: Assessment: * Assessment: 1. C olon cancer screening - Z12.11 (Primary) 2 . P ersonal history of colonic polyps - Z86.0100 3 . D iverticulosis of large intestine without perforation or abscess without bleeding - K57.30 4 . O ther hemorrhoids - K64.8 ? Plan: * Treatment: * Procedure Codes: G 0105 COLOREC CANCR SCR; COLNSCPY HI RISK, 0529F INTRVL 3+YRS PTS CLNSCP DOCD, 0528F RCMND FLW-UP 10 YRS DOCD, Modifiers: 1P * * The named appointment provid er may or may not be the originator of this progress note, and it is not deemed complete until electronically signed by the appointment provider. Sign off status: Pending * Provider: Zackary Rachel MD Date: 0 06/12/2024 Generated for Sia aragon/[place]/eTransmitting on: 0 11/01/2024 08:40 AM EDT
--- NOTE | 2024-11-01 08:31 | MHC.PC.OV ---
Vital Signs 11/01/24 08:33 Height 5 ft 3 in Weight 111 lb 4 oz BMI 19.7 BP 110/70 Blood Pressure Location Lt brachial Position Sitting Pulse 72 Pulse Source Pulse Oximeter Temp 97.1 F Temp Source Temporal Artery Scan Pulse Oximetry (%) 96 Oxygen Delivery Method Room Air Intake Visit Reasons: hypetension Intake Note: Patient is here to follow up on HTN. 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: Not Required per policy Accompanied by: Self / Same As Patient Allergies ROBSON Inhibitors Allergy (Intermediate, Verified 11/01/24 08:32) Cough Sulfa (Sulfonamide Antibiotics) (SULFA (SULFONAMIDE ANTIBIOTICS)) Allergy (Intermediate, Verified 11/01/24 08:32) Nausea and Vomiting Tobacco use date assessed: 11/01/24 Fall risk assessment: No Falls in past year Last assessed Fall Risk: 11/01/24 Dental Screening Dental Screen Date: 07/05/24 [facility] Medical History (Updated 04/03/24 @ 12:47 by Jack Garcia MD) Mild recurrent major depression Depression Dyslipidemia GERD (gastroesophageal reflux disease) Essential hypertension Surgical History S/P BLU-BSO History of colonoscopy History of total hysterectomy History of cholecystectomy History of tonsillectomy Family History Mother Dyslipidemia Father Multiple myeloma Social History Housing: House Alcohol intake: current Alcohol intake frequency: a few times a week Alcohol type: beer and wine Comment: 2 days weekend 2 drinks Patient Tobacco Use Status: Never used Tobacco Tobacco use type: Cigarette Years Smoked: marijuana e-Cigarette/Vaping Use: Never Used Second Hand Smoke Exposure: No service: No Current occupational status: retired Cognitive needs: No Hearing needs: No Vision needs: Yes Questionnaire PHQ-9 Over the last 2 weeks, how often have you been bothered by any of the following problems? 1. Little interest or pleasure in doing things: not at all 2. Feeling down, depressed, or hopeless: not at all 3. Trouble falling or staying asleep, or sleeping too much: not at all 4. Feeling tired or having little energy: not at all 5. Poor appetite or overeating: not at all 6. Feeling bad about yourself - or that you are a failure or have let yourself or your family down: not at all 7. Trouble concentrating on things, such as reading the newspaper or watching television: not at all 8. Moving or speaking so slowly that other people could have noticed. Or the opposite - being so fidgety or restless that you have been moving around a lot more than usual: not at all 9. Thoughts that you would be better off or of hurting yourself in some way: not at all Total score: 0 Depression Screening Interpretation: Negative Depression Screening Done: Yes Source: Developed by Drs. Jaiden Albert, Brittany Meek, Gilbert Cote and colleagues, with an educational wolfgang from [employer]. Thrive Questionnaire Date Thrive assessed: 10/27/24 I am a: Patient What is your living situation today?: I have a steady place to live Within the past 12 months, did the food you bought not last and you didn't have the money to get more?: Never true Within the past 12 months, did you worry whether your food would run out before you got money to buy more?: Never true Do you have trouble paying for medicines?: No Do you have trouble getting transportation to medical appointments?: No Do you have trouble paying your heating and electricity bill?: No Do you have trouble taking care of your child, family member or friend?: No Do you have trouble with day-to-day activities such as bathing, preparing meals, shopping, managing finances, etc.?: No Are you currently unemployed and looking for a job?: No Are you interested in more education?: No Please select the resources that you would like help with: None Currently or been in a relationship where the following occur: No concerns reported THRIVE Score: 0 AUDIT C Alcohol Use Questionnaire (AUDIT-C) 1. How often do you have a drink containing alcohol?: 2-3 times a week Total Score: 3 ALBER-7 AMB Questionnaire ALBER-7 Date ALBER - 7 assessed: 11/01/24 Feeling nervous, anxious, or on edge: 1 = Several days Not being able to stop or control worryin = Several days Worrying too much about different things: 1 = Several days Trouble relaxin = Several days Being so restless that it is hard to sit still: 0 = Not at all Becoming easily annoyed or irritable: 0 = Not at all Feeling afraid as if something awful might happen: 1 = Several days Total ALBER-7 score (0-4 normal; 5-9 mild; 10-14 moderate; 15-21 severe): 5 Source: Developed by Drs. Jaiden Albert, Brittany Meek, Gilbert Cote and colleagues, with an educational wolfgang from [employer]. Physical exam (Primary Care) Vital Signs: Last Vital Signs Temp 97.1 F 11/01/24 08:33 Pulse 72 11/01/24 08:33 BP 110/70 11/01/24 08:33 Pulse Ox 96 11/01/24 08:33 Oxygen Delivery Method Room Air 11/01/24 08:33 BMI result Body Mass Index 19.7 Tobacco/Smoking Status: Tobacco use Status Tobacco use date assessed 11/01/24 11/01/24 08:39 Patient Tobacco Use Status Never used Tobacco 11/01/24 08:39 Tobacco use type Cigarette 11/01/24 08:39 e-Cigarette/Vaping Use Never Used 11/01/24 08:39 PHQ-9: PHQ-9 Score PHQ-9: Total score 0 11/01/24 08:54 Depression Screening Interpretation: Negative Thrive Assessment: Date of Thrive Assessment Date Thrive assessed 10/27/24 11/01/24 08:39 Currently or been in a relationship where the following occur: No concerns reported Const General: alert; No acute distress Eyes Conjunctivae: conjunctivae normal Resp Auscultation: clear to auscultation bilaterally Cardio Rate: regular rate Rhythm: regular rhythm GI Inspection: Yes normal to inspection Extrem General: Yes normal to inspection and No edema Coding Level of Care Code Est Pt Level 4 (71123) Complex EM visit Add On G2211 Diagnoses Essential hypertension I10 Dyslipidemia E78.5 GERD (gastroesophageal reflux disease) K21.9 Mild recurrent major depression F33.0 Assessment & Plan Assessment & Plan (1) Essential hypertension: Code(s): I10 - Essential (primary) hypertension Category: Medical Plan: Continue with blood pressure medication. Decrease salt intake and exercise on amlodipine 2.5 mg once a day (2) Dyslipidemia: Code(s): E78.5 - Hyperlipidemia, unspecified Category: Medical Plan: Avoid fried foods, chicken skin, eggs, butter margarine, pastries and meat. Be it pork or beef they have a lot of cholesterol LDL goal of less than 130 and triglyceride of less than 150 March 2024 last blood work (3) GERD (gastroesophageal reflux disease): Code(s): K21.9 - Gastro-esophageal reflux disease without esophagitis Category: Medical Plan: Avoid the foods that causes that usually spicy foods, tomato products, juices, coffee, soda and foods that your sensitive to. After eating do not lie down, allow 3-4 hours before in lie down. And keep the head of bed above 30 degrees to avoid the acid from going up. (4) Mild recurrent major depression: Code(s): F33.0 - Major depressive disorder, recurrent, mild Category: Medical Plan: Continue with present medication. And discussed about counseling Plan History of Present Illness The patient is a 74-year-old female presenting for a follow-up visit. She has a history of hypertension, managed with amlodipine 2.5 mg once daily, with generally well-controlled blood pressure readings. Her hypercholesterolemia is under control, with a recent LDL cholesterol level of 98 mg/dL, below the target of 130 mg/dL. The patient continues her current medication regimen for gastroesophageal reflux disease (GERD). Recurrent depression is part of her medical history, with counseling discussed as a management option. Preventative care measures include up-to-date mammogram and bone density screening, both normal. Her last blood work showed normal blood count with mild leukopenia and normal levels of electrolytes, renal function, blood sugar, liver function, B12, vitamin D, and folic acid. Health Maintenance - Mammogram: Up to date, normal results - Bone density screening: Up to date, normal results - Blood work: Normal blood count with mild leukopenia, normal electrolytes, renal function, blood sugar, liver function, B12, vitamin D, and folic acid levels - Vaccinations: Discussed timing for flu shot and COVID-19 booster in the fall - Shingles vaccination: Completed - Pneumonia vaccination: One dose completed, second dose planned in the future Social History Review of Systems Physical Exam Results - Labs: Normal blood count with mild leukopenia, normal electrolytes, renal function, blood sugar, liver function, LDL cholesterol 98 mg/dL, normal B12, vitamin D, and folic acid levels - Mammogram: Normal - Bone density: Normal Plan The patient will continue amlodipine 2.5 mg daily for hypertension, focusing on blood pressure trends. For hypercholesterolemia, maintaining LDL cholesterol below 130 mg/dL remains the goal. Current medication for GERD will be continued. Counseling is part of the plan for managing recurrent depression. Preventative care includes flu and COVID-19 vaccinations in the fall. The patient has completed shingles vaccination and will receive the second pneumonia vaccine dose in the future. Patient was informed and verbally consented to the use of an ambient scribe for clinic note documentation during this visit. Discussion Notes During the visit, I discussed the importance of monitoring blood pressure trends rather than focusing on individual readings, and the patient will continue with amlodipine 2.5 mg daily. We reviewed her cholesterol management, aiming to keep LDL levels below 130 mg/dL, and her current levels are satisfactory. I advised continuing her current GERD medication and discussed counseling as a beneficial option for managing her recurrent depression. We also talked about the timing for her flu shot and COVID-19 booster, recommending administration in the fall. The patient has completed her shingles vaccination and will plan for the second pneumonia vaccine dose in the future. Patient Instructions - Continue taking amlodipine 2.5 mg daily for blood pressure management. - Monitor blood pressure trends, not individual readings. - Maintain current cholesterol management plan to keep LDL below 130 mg/dL. - Continue current GERD medication regimen. - Consider counseling for depression management. - Plan to receive flu shot and COVID-19 booster in the fall. - Shingles vaccination series is complete; plan for second pneumonia vaccine dose in the future. Orders: Orders Complete Blood Count Auto Diff 5 Months E78.5 - Hyperlipidemia, unspecified Thyroid Stimulating Hormone 5 Months E78.5 - Hyperlipidemia, unspecified Lipid Panel 5 Months E78.00 - Pure hypercholesterolemia, unspecified, E78.5 - Hyperlipidemia, unspecified Vitamin D 25-OH Total 5 Months E78.5 - Hyperlipidemia, unspecified Comprehensive Met. Panel 5 Months E78.5 - Hyperlipidemia, unspecified Free T4 (Free Thyroxine) 5 Months E78.5 - Hyperlipidemia, unspecified Vitamin B12 and Folate 5 Months E78.5 - Hyperlipidemia, unspecified
[2024-11-01 08:33] VITALS: BP 110/70; PULSE 72; TEMP 36.2; O2SAT 96; BMI 19.7
== END 2024-11-01 09:05 | disposition home or self-care (01) ==
LOC: HO.HMCH 08:28
PROVIDERS: PCP Internal Medicine; Visit Provider Internal Medicine
DX: I10 Essential (primary) hypertension (principal); E78.5 Hyperlipidemia, unspecified; K21.9 Gastro-esophageal reflux disease without esophagitis; F33.0 Major depressive disorder, recurrent, mild

== ENCOUNTER → 2024-11-01 08:27 | Outpatient (BNVA) | payer MEDICARE, BC, SELFPAY | PROVIDERS: PCP Internal Medicine; Visit Provider Internal Medicine | DX: I10 Essential (primary) hypertension (principal); E78.5 Hyperlipidemia, unspecified; K21.9 Gastro-esophageal reflux disease without esophagitis; F33.0 Major depressive disorder, recurrent, mild | CPT/HCPCS: 99212 ==

== ENCOUNTER 2025-01-03 07:42 | Outpatient (REF) | payer MEDICARE, BC, SELFPAY ==
--- NOTE | ~2025-01-03 | MM_ITS ---
EXAMINATION: MM SCREENING DIGITAL BREAST TOMOSYNTHESIS, BILATERAL CLINICAL INFORMATION: Screening. Asymptomatic. COMPARISON: Mammography: Comparison is made with available priors TECHNIQUE: Digital breast mammography with tomosynthesis is performed in both the craniocaudal and mediolateral oblique views along with computer-aided detection (CAD). FINDINGS: The breasts are heterogeneously dense, which may obscure small masses. Left: Asymmetry retroareolar region posterior depth on CC view. No suspicious calcifications or other abnormal findings. Right: Asymmetry superior breast posterior depth on MLO view with question associated architectural distortion this may be more posterior on CC view so repeat CC view recommended as well. No suspicious calcifications or other abnormal findings. MM/MM tomosynthesis screening BI IMPRESSION: Additional imaging is recommended ASSESSMENT: BI-RADS Category 0: Incomplete - Need additional Imaging Evaluation RECOMMENDATION: 1. Additional views of the bilateral breasts. 2. Targeted ultrasound if warranted after review of the additional views. 3. Radiology department staff will contact the patient for additional imaging. Additional Imaging required Electronically signed by: Ruth Horta DO 01/06/2025 12:55 PM EDT
--- OUTSIDE RECORDS SUMMARY | 2025-01-03 07:46 | XMS_ITS | Data Portability ---
Author Organization [facility], Telehealth Patient Home Address [address] [place] [address] Assessment No assessment recorded. Plan of Treatment [...] Name and Address Organization Details Recorded Time Irritable bowel syndrome 87981304 Active 2017 Yamilet barry [facility] 8 08:36:37 Acid reflux 779939724 Active 2017 Yamilet barry [facility] 8 08:36:57 Hyperchole sterolemia 26900084 Active 2017 Yamiletsandra barry [facility] 8 08:37:10 Essential hypertensi on 43191679 Active 2017 Lola Lind NP, [address] [place], [address], [facility] 8 10:41:18 Problem Notes None recorded. Medical Equipment None Reported. Allergies Allergen ID Allergen Name Allergen Category Reaction Reaction Severity Criticality Documentation Date Start Date Code Code System Note Provider Name and Address Organization Details Recorded Time 1006 Substance with sulfonami de structure and antibacte rial mechanism of action (substanc e) medicatio n Not available Not available Not available 07/04/2017 [id number] SNOMED Yamilet Shea asha [facility] 8 08:36:26 Medications Name [...] in Arterial blood by Pulse oximetry Systolic And Diastolic Provider Name and Address Organization Details Last Updated DateTime 8 161.29 cm 23.5 kg/m2 79837.8 9 g 69 /min 99 % 99 % 124/72 mm[Hg] Yamilet Shea [facility] 8 11:18:34 Social History Question Answer Notes LastModified by Organizat ion Details LastModified Time Tobacco Smoking Status Never Smoker Not Available [facility] 01/14/2020 03:36:23 What Was The Date Of Your Most Recent Tobacco Screening? 07/04/2017 [id number] Information not available 01/14/2020 Sex: Unknown Functional Status None recorded. Mental Status None recorded. Family History Nothing Reported. Medical History No medical history recorded. Gynecological HistoryNo gynecological history recorded. Obstetrics History GPAL:G 0 P 0 0 0 0 Immunizations Vaccine Type Date Status Note Provider Nam e and Address Organization Details Recorded Time Tdap 10/12/2017 completed Lola Lind NP, [address] [place], [address], [facility] 10/20/2017 08:49:35 Past Encounters Encounter ID Performer Location Encounter Start Date Encounter Closed Date Diagnosis/Indication Diagnosis SNOMED-CT Code Diagnosis ICD10 Code Diagnosis IMO Codes Diagnosis Note [id number]ar[address] [facility] [address] [facility],[place] [address] 07/04/2017 11:10:01 07/04/2017 14:16:58 Essential hypertension 36306476 I10 improved with valsartan, reviewed labs Health Concerns Section Related Observation LastModified by Organization Detai ls LastModified Time None Recorded Concern Status LastModified by Organization Details LastModified Time None Recorded Advance Directives Directive None Recorded Payers Insurance Date Sequence Insurance Name Policy Number Policy Deleon Covered Member ID Deleon Member ID Guarantor Name 07/04/2017 1 [place] [employer] Angelique Wellingtons [id number] Angelique [place] 07/04/2017 2 [place] [id number] Angelique Lira [id number] Angelique Lira Notes Date Note Type Note Provider Name a nd Address Organization Details Recorded Time 07/04/2017 text/html ROS as noted in the HPI Began valsartan 05/30/2017 feels better checking home BP's, consistently better than previous, usually 120's/70-80 Lola Lnid NP, [address] [place], [address], [facility] 07/04/2017 12:18:11 OBGyn Episode No OBEpisode recorded.
== END 2025-01-03 07:43 | disposition home or self-care (01) ==
LOC: HO.MAMMO 07:42
PROVIDERS: PCP Internal Medicine; Visit Provider Internal Medicine
DX: Z12.31 Encounter for screening mammogram for malignant neoplasm of breast (principal)
CPT/HCPCS: 77063; 77067

== ENCOUNTER → 2025-01-03 08:00 | Outpatient (BNV) | payer MEDICARE, BC, SELFPAY | PROVIDERS: PCP Internal Medicine; Visit Provider Internal Medicine | DX: Z12.31 Encounter for screening mammogram for malignant neoplasm of breast (principal) | CPT/HCPCS: 77063; 77067 ==

== ENCOUNTER 2025-02-24 12:09 | Outpatient (REF) | payer MEDICARE, BC, SELFPAY ==
--- NOTE | ~2025-02-24 | MM_ITS ---
EXAMINATION(S): 1. MM DIAGNOSTIC DIGITAL BREAST TOMOSYNTHESIS, BILATERAL 2. TARGETED ULTRASOUND OF THE RIGHT BREAST CLINICAL INFORMATION: Callback from screening for bilateral findings: Right: Asymmetry in the superior breast posterior depth on MLO view with questioned associated architectural distortion. Left: Asymmetry in the retroareolar region posterior depth on the CC view COMPARISON: Comparison made to multiple prior, most recent January 03, 2025, and most remote July 12, 2018. TECHNIQUE: Digital breast tomosynthesis is performed in full-field ML 90 degrees and CC views along with computer-aided detection (CAD). Synthesized 2D images are generated from the tomosynthesis. Spot compression tomosynthesis were obtained. FINDINGS: BREAST COMPOSITION: The breasts are heterogeneously dense, which may obscure small masses. RIGHT BREAST: Previously suggested asymmetry in the superior breast on the MLO view is pliable with spot compression. On today's images, the local parenchyma is similar to multiple prior studies as far back as 2018, therefore, likely represented overlapping fibroglandular breast tissue. Targeted ultrasound of the right breast was performed at the location of the mammographic finding. The survey along the upper breast between 11:00 and 1:00 axis did not reveal suspicious sonographic correlate. LEFT BREAST: Previously seen asymmetry on the CC view is pliable with spot compression. On today's images, the local parenchyma is similar to multiple prior studies as far back as 2019, therefore, likely represented overlapping fibroglandular breast tissue. MM/MM tomosynthesis added view BI IMPRESSION: RIGHT BREAST: Benign, no evidence of malignancy. Normal interval follow-up is recommended in 12 months. LEFT BREAST: Benign, no mammographic evidence of malignancy. Normal interval follow-up is recommended in 12 months. ASSESSMENT: BI-RADS: Category 2: Benign RECOMMENDATION: 1 year F/U Results were provided to the patient at time of visit by the technologist. This patient's information was entered into a reminder system with a target due date for their next mammogram. Electronically signed by: Deborah Rich MD 02/24/2025 01:16 PM [facility] [place]
== END 2025-02-24 12:10 | disposition home or self-care (01) ==
LOC: HO.MAMMO 12:09
PROVIDERS: PCP Internal Medicine; Visit Provider Internal Medicine
DX: N64.89 Other specified disorders of breast (principal)
CPT/HCPCS: 76642; 77062; 77066

== ENCOUNTER → 2025-02-24 12:30 | Outpatient (BNV) | payer MEDICARE, BC, SELFPAY | PROVIDERS: PCP Internal Medicine; Visit Provider Radiology Body Imaging | DX: R92.8 Other abnormal and inconclusive findings on diagnostic imaging of breast (principal) | CPT/HCPCS: 76642; 77066; G0279 ==